=== PATIENT | female | born 1965 | race African-American/Black ===

== ENCOUNTER 2017-01-27 17:35 | Inpatient (IN) ==
[2017-01-27 18:12] LABS: Eosinophils # 0.1 10*3/uL (0.0-0.87); Eosinophils % 0.9 % (0.00-10.9); Immature Granulocytes % 0.9 %; Immature Granulocytes Absolute 0.06 #; Lymphocytes # 0.9 10*3/uL (1.4-4.0); Lymphocytes % 13.9 % (21.3-54.2); Mean Corpuscular Hemoglobin 16 PG (27-34); Mean Corpuscular Volume 64.2 FL (87-102); Monocytes # 0.3 10*3/uL (0.11-0.8); Monocytes % 5.1 % (1.7-12.7); NRBC # 0.03 10*3/uL; Neutrophils # 5.1 10*3/uL (1.4-7.4); Neutrophils % 79.2 % (38.7-73.9); Platelet Count 396 T/CUMM (130-400); Red Blood Count 1.87 MC/CUMM (3.8-5.5); Red Cell Distribution Width 22.3 % (9.3-17.3); White Blood Count 6.5 T/CUMM (4-12)
[2017-01-27 18:38] LABS: Alanine Aminotransferase 79 U/L (13-56); Albumin 3.3 G/DL (3.4-5.0); Alkaline Phosphatase 257 U/L (45-117); Aspartate Amino Transferase 43 U/L (0-37); Blood Urea Nitrogen 7 MG/DL (7-18); Calcium 8.8 MG/DL (8.5-10.1); Glucose 126 MG/DL (74-106); Magnesium 2.3 MG/DL (1.8-2.4); Osmolality,Calculated 276.5 MOS/KG (273-304); Potassium 4.3 MMOL/L (3.5-5.1); Sodium 139 MMOL/L (136-145); Total Protein 8.3 G/DL (6.4-8.3); Troponin I Only < 0.015 NG/ML (0.00-0.045)
[2017-01-27 18:38] LABS: Apearance,Urine CLEAR (Clear); Bilirubin,Urine Negative (Negative); Blood, Urine Negative (Negative); Glucose,Urine (UA) Negative (Negative); Ketones,Urine Negative (Negative); Mucus,Urine Occasional /LPF (Occasional); Nitrite,Urine Negative (Negative); Protein,Urine 100 MG/DL; RBC,Urine 1 /HPF (0-4); Urine Color Yellow (Yellow); WBC,Urine 8 /HPF (0-6)
[2017-01-27] MEDS ORDERED: SODIUM CHLORIDE 0.9% 250 ML IV PRN (18:38)
--- NOTE | 2017-01-27 18:49 | XRay Report ---
Portable chest January 27, 2017 Indication: Shortness of breath, weakness Comparison: Not available Findings: Heart size is enlarged. Lungs are clear bilaterally. No acute osseous abnormalities. Visualized upper abdomen demonstrates no acute pathology. Impression: Cardiomegaly. No acute cardiopulmonary findings PROCEDURE INTERPRETED AT [facility] DEPARTMENT OF RADIOLOGY Final Report Signed by: Sesar Douglas
[2017-01-27 19:23] LABS: Microcytosis 3+
[2017-01-27 19:24] LABS: Hypochromasia 2+; Rouleau 2+
[2017-01-27 19:25] LABS: Ovalocytes Few; Tear Drop Cells Few
[2017-01-27 19:26] LABS: Platelet Estimate Normal
[2017-01-27 19:37] LABS: % Iron Saturation 3.1 % (18-50)
[2017-01-27 19:40] LABS: INR 1.3; PT Patient Result 14.3 SECS
[2017-01-27 19:43] LABS: Partial Thromboplastin Time < 21.0 SECS (0-40)
--- NOTE | 2017-01-27 20:02 | CT Report ---
Exam: CT abdomen and pelvis with intravenous contrast Exam date: January 27, 2017 Clinical History: 4-year-old male with abdominal pain radiating to right lower quadrant Technique: Axial computed tomography images of the abdomen and pelvis with intravenous contrast. All CT scans at this facility use one or more dose reduction techniques. Automated exposure control, MA/KV adjustment per patient size (including targeted exam Square dose is matched to indication) or iterative reconstruction technique Contrast: 25 mL of Omnipaque 350 administered intravenously Comparison: No relevant prior studies Findings: Lower thorax: Four-chamber cardiomegaly Abdomen: Liver: Enlarged and diffusely heterogeneous in enhancement and attenuation Gallbladder and bile ducts: Gallbladder is contracted. No calcified stones. No ductal dilatation. Pancreas: Pancreas is normal. Spleen: Spleen is normal. Adrenals: No adrenal mass. Kidneys and ureters: Kidneys are normal in size, morphology and enhancement. No hydronephrosis. No ureteral calculus. Stomach and bowel: No evidence of acute gastritis, colitis or enteritis. No bowel obstruction. Appendix: Unremarkable. No primary or secondary signs to suggest appendicitis. Pelvis: Bladder: Unremarkable Reproductive: Uterus is markedly enlarged measuring 14.0 x 20.0 x 15.0 cm with nodularity, diffuse heterogeneity and dystrophic calcifications. The uterus extends into the mid abdomen displacing bowel and adjacent structures. Abdomen and pelvis: Intraperitoneal space: No pneumoperitoneum. Four-quadrant ascites Bones/joints: No acute osseous abnormality Soft tissues: Stranding throughout the subcutaneous soft tissues Vasculature: No aortic aneurysm Lymph nodes: No adenopathy Impression: 1. Markedly enlarged fibroid uterus measuring up to 20.0 cm in long dimension displacing lower abdominal and intrapelvic structures. 2. Ascites and anasarca 3. Hepatomegaly with diffuse heterogeneity in attenuation and enhancement, likely related to steatosis 4. Other findings as discussed above PROCEDURE INTERPRETED AT [facility] DEPARTMENT OF RADIOLOGY Final Report Signed by: Sesar Douglas
--- NOTE | 2017-01-27 20:32 | Emergency Department Note ---
Evan Corcoran Brooke, am scribing for, and in the presence of, Kate Lockhart MD 17: 57. Richy Corcoran Leanne, MD, personally performed the services described in this documentation, ascribed by Mary Gordon in my presence, and it is both accurate and complete . Arrival - Arrival Chief Complaint: Shortness of Breath Stated Complaint: sob ED Nursing Triage Note: PT BROUGHT FROM HOME PER EMS FOR C/O SHORTNESS OF BREATH X2 WEEKS, WORSE WITH EXERTION. PT ALSO REPORTS INCREASED SWELLING TO ABD AND FEET OVER THE PAST 3 WEEKS. PT DENIES ANY HEALTH HISTORY OR PCP. Mode of Arrival: Stretcher Limitations: No Limitations Source: Patient, EMS, RN Notes Reviewed Time Seen by Provider: 01/27/17 17:48 - History of Present Illness HPI Narrative: Patient is a 51 year old female who was brought into the ED by EMS with c/o shortness of breath and fluid build up. Patient says she "does not go to the doctor" so she does not have any diagnoses. Patient says her abdomen and bilateral lower extremities started swelling about two weeks ago. With the swelling she became short of breath. She has had a 30 pound weight gain "within the past year." Patient says she has not seen a doctor in over three years. She says she does not have a FHx of CHF or liver disease. Patient does not drink alcohol. She denies having any pain. Patient says she has had gestational HTN but denies any other medical problems. Patient also denies . She does not take any medications. Onset (ago): week(s) (2) Allergies/Adverse Reactions: Allergies Allergy/AdvReac Type Severity Reaction Status Date / Time No Known Allergies Allergy Verified 01/27/17 17:47 Review of System - Review of System 12 point system: reviewed and no additional remarkable complaints except as stated - Review of System Constitutional: Present: weight gain (30 pound "within the past year"). Absent : fever Respiratory: Absent: respiratory distress Cardiovascular: Present: edema (bilateral lower extremity) Gastrointestinal: Present: other (abdominal swelling) Skin: Absent: rash Medical,Surgical,& Family Hx - Surgical History Orthopedic Surgeries: Surgical HX of;: Orthopedic Surgery (LEFT FUMUR MERCED) - Social History Smoking Status: Never smoker Frequency of Alcohol Use: None Type of Drug Use: None Exam Vital Signs: Vital Signs Temperature 98.1 F 01/27/17 19:11 Pulse Rate 90 01/27/17 19:11 Respiratory Rate 16 01/27/17 19:11 Blood Pressure 149/78 01/27/17 19:11 O2 Sat by Pulse Oximetry 100 01/27/17 18:45 - General General appearance: alert, in no apparent distress - Head Head exam: Present: atraumatic, normocephalic, normal inspection - Eye Eye exam: Present: normal appearance, PERRL, EOMI - ENT ENT exam: Present: normal exam, mucous membranes moist - Neck Neck exam: Present: normal inspection - Chest Chest inspection: Present: normal inspection, symmetric chest wall rise - Respiratory Respiratory exam: Present: normal lung sounds bilaterally - Cardiovascular Cardiovascular exam: Present: regular rate, normal rhythm, normal heart sounds - Abdominal Exam Abdominal exam: Present: distention (fluid overload), normal bowel sounds. Absent: soft, tenderness - Extremities Exam Extremities exam: Present: pedal edema (bilateral lower extremities- fluid overload) - Back Exam Back exam: Present: normal inspection - Neurological Exam Neurological exam: Present: alert, oriented X3 - Psychiatric Psychiatric exam: Present: normal affect, normal mood - Skin Skin exam: Present: warm, dry, intact, normal color Course Course Narrative: Pt presents with SOB. Found to be severely anemic. Pt states she has very heavy periods. FOBT negative. CT scan shows ascites and hepatomegaly and enlarged uterus. Ordered 4 units of blood. will admit to hospitalist. Results - Labs CBC & BMP: 01/27/17 18:26 01/27/17 17:53 Lab Results: I have reviewed the patients labs Labs: Laboratory Tests 01/27/17 18:26 WBC 6.5 RBC 1.87 L Hgb 3.0 L* Hct 12.0 L* MCV 64.2 L MCH 16 L MCHC 25.0 L RDW 22.3 H Plt Count 396 MPV 10.0 Neut % (Auto) 79.2 H Lymph % (Auto) 13.9 L [place] % (Auto) 5.1 Eos % (Auto) 0.9 Baso % (Auto) 0.0 Neut # (Auto) 5.1 Lymph # (Auto) 0.9 L [place] # (Auto) 0.3 Eos # (Auto) 0.1 Baso # (Auto) 0.0 Immature Gran % 0.9 Nucleated RBC % 0.5 Immature Gran # 0.06 Nucleated RBCs # 0.03 Immature Plt Fraction 2.7 Laboratory Tests 01/27/17 01/27/17 17:53 18:28 Sodium 139 Potassium 4.3 Chloride 107 Carbon Dioxide 19 L Anion Gap 17.3 H BUN 7 Creatinine 1.00 GFR Calculation 97 BUN/Creatinine Ratio 7.00 Glucose 126 H Calculated Osmolality 276.5 Calcium 8.8 Magnesium 2.3 Total Bilirubin 1.10 H AST 43 H ALT 79 H Alkaline Phosphatase 257 H Troponin I < 0.015 Total Protein 8.3 Albumin 3.3 L Globulin 5.0 H Albumin/Globulin Ratio 0.6 L Urine Color Yellow Urine Appearance Clear Urine pH 7.0 Ur Specific [place] 1.010 Urine Protein 100 Urine Glucose (UA) Negative Urine Ketones Negative Urine Blood Negative Urine Nitrate Negative Urine Bilirubin Negative Urine Urobilinogen 2.0 H Urine Leukocytes Negative Urine RBC 1 Urine WBC 8 Urine Mucus Occasional Ur Culture Indicated? Results to follow Laboratory Tests 01/27/17 01/27/17 01/27/17 17:53 17:58 17:58 B-Natriuretic Peptide 306 H Blood Type A POSITIVE Antibody Screen Negative Crossmatch See Detail Laboratory Tests 01/27/17 01/27/17 01/27/17 17:53 17:53 18:26 Platelet Estimate Normal Hypochromasia 2+ Microcytosis 3+ Tear Drop Cells Few Ovalocytes Few Rouleaux 2+ INR 1.3 PT Patient/Control Mix 14.3 Circ Anticoag PTT < 21.0 Iron 15 L TIBC 477 H % Saturation 3.1 L Ferritin 3.0 L - EKG EKG results: interpreted by ERMEric, sinus rhythm, normal axis, normal QRS, normal ST/T - Diagnostic Findings Procedure: Chest x-ray: report reviewed by me (No acute cardiopulmonary findings.), CT Abdomen and Pelvis: report reviewed by me (1. Markedly enlarged fibroid uterus measuring up to 20.0cm in long dimension displacing lower abdominal and intrapelvic structures. 2. Ascites and anasarca. 3. Hepatomegaly with diffuse heterogeneity in attenuation and enhancement, likely related to steatosis.) Disposition Clinical Impression: Symptomatic anemia, Ascites, Cardiomegaly Case discussed with: patient Condition: Guarded Additional Instructions: Admit to hospitalist.
[2017-01-27] MEDS ORDERED: ENOXAPARIN 40 MG/0.4 ML SYRINGE SUBCUT SCH (21:30)
--- NOTE | 2017-01-27 21:40 | Hospitalist History & Physical ---
Assessment and Plan - Time spent with patient Time spent with patient: Greater than 30 minutes (1) Anemia Status: Acute Assessment and plan: Admit to hospitalist services. Admit to ICU. Hemoglobin/Hematocrit: 3.0/12.0, Iron 15, TIBC 477, Ferritin 3.0. 4 units PRBC ordered and started in ED; continue. Suspect anemia related to heavy and prolonged menstrual periods. Consult Women's Health. Recheck CBC in am. Current Visit: Yes (2) CHF (congestive heart failure) Status: Acute Assessment and plan: BNP 306. CXR shows cardiomegaly. May at least be partially related to severe anemia, continue PRBC transfusions. Consult cardiology. Obtain EKG and Echo. Lipid panel, A1C, TSH, Free T4, Total T4, and Mag in am. Patient denies history of HTN and takes no medications, but BP in ED suggests HTN is probable; continue to monitor and initiate treatment if SBP remains elevated above 150. Cardiac Diet. Daily weight. Strict I/Os. Current Visit: Yes (3) Ascites Status: Acute Assessment and plan: Likely component of CHF. Also has elevated liver enzymes. Obtain abdominal ultrasound. Current Visit: Yes (4) DVT prophylaxis Status: Acute Assessment and plan: Bilateral SCDs. Current Visit: Yes History of Present Illness Chief complaint: SOB, Ascites, BLE edema History of present illness: Ms. Luong is a 51 year old female with no reported medical history who was brought to the ED by EMS tonight for complaints of shortness of breath, BLE edema, and abdominal fullness/bloating that started about 2 weeks [facility] but has worsened over the last week. She reports having to sleep on 3 pillows at night to feel comfortable. In the ED, she was found to have a hemoglobin and hematocrit of 3.0 and 12.0 respectively. She reports having heavy and prolonged monthly menstrual periods over the last year, with some lasting for an entire month. Ms. Luong reports that her mother had a hysterectomy to correct similar bleeding. She denies any other source of bleeding. Additionally, CXR in the ED showed cardiomegaly, BNP was 306 and liver enzymes were elevated. She denies any chest pain or N/V/D. Ms. Luong reports that it has been a long time since she has seen a doctor. She states she is afraid to going to the doctor and getting bad news. It's been a number of years since her last gynecology visit, and she denies taking any home medications. Hospitalist services were consulted , and the patient will be admitted to ICU for further evaluation and treatment. Allergies Allergy/AdvReac Type Severity Reaction Status Date / Time No Known Allergies Allergy Verified 01/27/17 17:47 Medical,Surgical,& Family Hx - Medical History Other: History of: Miscellaneous Medical Problems (PMH was reviewed with the patient. She denies any PMH or medications. ) - Surgical History Orthopedic Surgeries: Surgical HX of;: Orthopedic Surgery (LEFT FEMUR MERCED) - Family History Family History: Reports;: Additional Family History (Mother had hysterectomy 2/ 2 menorrhagia ) - Social History Smoking Status: Never smoker Have you smoked in the last 12 months: No Frequency of Alcohol Use: None Type of Drug Use: None Marital Status: Single Lives With:: Alone Functional capacity: independent ambulation 12 point system: reviewed and no additional remarkable complaints except as stated - Constitutional Constitutional: Absent: chills, fever(s), lethargy, malaise, weakness - EENT Eyes: Absent: blurry vision, diplopia, loss of vision Ears: Absent: decreased hearing, ear discharge, ear pain Nose, mouth and throat: Present: nasal congestion. Absent: headache(s), sore throat - Cardiovascular Cardiovascular: Present: dyspnea, dyspnea on exertion, edema, orthopnea. Absent : chest pain at rest, chest pain with activity, palpitations - Respiratory Respiratory: Present: cough, dyspnea, dyspnea on exertion, wheezing - Gastrointestinal Gastrointestinal: Present: bloating. Absent: abdominal pain, coffee ground emesis, constipation, diarrhea, hematemesis, hematochezia, melena, nausea, vomiting - Genitourinary Genitourinary: Present: menorrhagia. Absent: dysuria, hematuria, urinary frequency - Musculoskeletal Musculoskeletal: Absent: arthralgias, back pain, joint swelling, muscle weakness , myalgias - Neurological Neurological: Absent: dizziness, numbness, paresthesias, syncope - Psychiatric Psychiatric: Absent: anxiety, depression - Endocrine Endocrine: Absent: cold intolerance, heat intolerance, polydipsia, polyphagia, polyuria - Hematologic/Lymphatic Hematologic/Lymphatic: Absent: easy bleeding, easy bruising Exam - Constitutional Vitals: Period Temp Pulse Resp BP Sys/[place] Pulse Ox Last 24 Hr 98.1 F-98.4 F 87-95 16-20 139-170/69-97 100-100 Exam: Constitutional System: Afebrile. Awake, alert and oriented x 3. No distress. No tremulousness. Head: Normocephalic, atraumatic. Ears, Nose and Throat System: No pain or tenderness. No epistaxis or discharge Eyes System: Pupils equal, round, and reactive. Extraocular muscles intact grossly. Neck: Supple, without adenopathy. No thyromegaly, neck mass, or prior surgery apparent. Respiratory System: Bilateral wheezing noted. Cardiovascular System: Heart with regular rate. S4 gallop noted. Systolic murmur noted. GI System: Abdomen distended, nontender; without rebound or guarding. Normo active bowel sounds present. Musculoskeletal System: BLEs with 4+ pitting edema. Normal capillary refill. Skin: warm, dry and intact. Neurological System: No discernable sensory deficit. No aphasia Psychiatric System: Conversation is rational Results - Labs CBC & BMP: 01/27/17 18:26 01/27/17 17:53 Lab Results: I have reviewed the past 24 hour labs
[2017-01-28 05:42] LABS: Basophils % 0.5 % (0.0-0.8); Eosinophils % 0.6 % (0.00-10.9); Immature Granulocytes % 1.5 %; Lymphocytes % 14.7 % (21.3-54.2); Mean Corpuscular HGB Conc 29.5 GM/DL (32-36); Mean Corpuscular Hemoglobin 21 PG (27-34); Mean Corpuscular Volume 71.2 FL (87-102); Mean Platelet Volume 9.4 FL (9.6-12.0); Monocytes # 0.4 10*3/uL (0.11-0.8); Monocytes % 5.9 % (1.7-12.7); NRBC # 0.05 10*3/uL; Neutrophils % 76.8 % (38.7-73.9); Platelet Count 356 T/CUMM (130-400); Red Blood Count 2.43 MC/CUMM (3.8-5.5); Red Cell Distribution Width 24.3 % (9.3-17.3); White Blood Count 6.5 T/CUMM (4-12)
[2017-01-28 05:46] LABS: Hemoglobin 5.1 GM/DL (12.0-16.0)
[2017-01-28 05:47] LABS: Hematocrit 17.3 VOL% (35.7-47.0)
[2017-01-28 06:09] LABS: Hypochromasia 2+; Microcytosis 2+
[2017-01-28 06:10] LABS: Free T4 (Free Thyroxine) 1.58 NG/DL (0.76-1.46); Ovalocytes Few; Platelet Estimate Normal; T4 (Thyroxine) 10.1 UG/DL (4.7-13.3); Tear Drop Cells Few
[2017-01-28 06:19] LABS: Magnesium 2.3 MG/DL (1.8-2.4); Risk Ratio 4.5; Thyroid Stimulating Hormone 3.16 uIU/ml (0.358-3.74); VLDL CHOLESTEROL 13.2 MG/DL
[2017-01-28] MEDS ORDERED: DOCUSATE SODIUM 100 MG CAPSULE PO PRN (08:03)
[2017-01-28] MEDS ORDERED: ZALEPLON 5 MG CAPSULE PO PRN (08:03)
[2017-01-28] MEDS ORDERED: MAGNESIUM SULF RIDER 2 GM in PREMIX 1 EACH IV PRN (08:03)
[2017-01-28] MEDS ORDERED: ALBUTEROL/IPRATROPIUM 3 ML NEB RESP TX PRN (08:03)
[2017-01-28] MEDS ORDERED: MAGNESIUM SULF RIDER 4 GM in PREMIX 1 EACH IV PRN (08:03)
[2017-01-28] MEDS ORDERED: POTASSIUM CHLORIDE 20 MEQ TABLET PO PRN (08:03)
[2017-01-28] MEDS ORDERED: ONDANSETRON 4 MG/2 ML VIAL IV PRN (08:03)
[2017-01-28] MEDS ORDERED: diphenhydrAMINE CAP 25 MG CAPSULE PO PRN (08:03)
[2017-01-28] MEDS ORDERED: ACETAMINOPHEN 325 MG TABLET PO PRN (08:03)
--- NOTE | 2017-01-28 08:06 | Cardiology Consult Note ---
Assessment and Plan - Time spent with patient Time spent with patient: Less than 30 minutes (1) Anemia Status: Acute Assessment and plan: See plan of care listed below. Current Visit: Yes (2) Dyspnea Status: Acute Assessment and plan: See plan of care listed below. Current Visit: Yes Qualifiers: Dyspnea type: shortness of breath Qualified Code(s): R06.02 - Shortness of breath; R06.00 - Dyspnea, unspecified; R06.01 - Orthopnea (3) Ascites Status: Acute Assessment and plan: See plan of care listed below. Current Visit: Yes (4) Hypertension Status: Acute Assessment and plan: See plan of care listed below. Current Visit: Yes (5) Elevated LFTs Status: Acute Assessment and plan: See plan of care listed below. 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 Luong is a 51 year old female with no reported medical history. She is a lifetime non-smoker, non-drinker. Risk factors are significant for: obesity, sedentary lifestyle, hypertension, diabetes. She has no significant family history of CAD. She was brought to our emergency department via EMS for complaints of shortness of breath, BLE edema, and abdominal fullness/bloating that has been progressively worsening over the past 2 weeks. She reports she first noticed she 'd been retaining fluid about a month ago, mainly in her abdomen and bilateral lower extremity. She reports dyspnea on exertion during the past 2 weeks along with 3 pillow orthopnea. Her H&H on arrival was 3.0 and 12.0. She reports having heavy menstrual cycles over the past year, some of her periods lasting for a month at a time. She does report her mother having to have a hysterectomy to correct similar bleeding. She denies chest pain at rest or on exertion, melena, hematochezia, hematemesis, epistaxis. She has noticed occasional palpitations. Ms. Luong had a BNP of 306 on admission with gross edema to BLE. She is noted to have ascites. Chest x-ray on admission shows cardiomegaly with clear lungs bilaterally. Abdomen/pelvis CT revealed enlarged fibroid uterus, hepatomegaly, ascites, and anasarca. Abdominal ultrasound revealed hepatomegaly with diffuse steatosis and trace ascites. We'll check a hepatitis panel. Lipid panel revealed triglycerides 66, cholesterol 81, LDL 57, and HDL 18. EKG shows sinus rhythm with ST-T abnormality. ASSESSMENT/PLAN: 1. 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 She is currently receiving her 4th unit of PRBCs. Stool for occult blood is pending. 2. DYSPNEA - BNP 306 upon admission with BLE edema and ascites, suggestive of CHF. Echocardiogram is pending. We will also check d-dimer to rule out PE. She has been started on Lasix 40mg IV BID. She is receiving her 4th unit of blood. She is also noted to have scattered expiratory wheezing. We'll go ahead and start her on breathing treatments PRN. 3. ASCITES - Continue Lasix 40mg IV BID for now. 4. HYPERTENSION - Blood pressure has been elevated since admission. She is also noted to have a HgbA1C of 7.4. We'll start her on a low-dose ARUNA inhibitor and continue to monitor and adjust accordingly. 5. ELEVATED LFTs - Abdomen/pelvis CT revealed enlarged fibroid uterus, hepatomegaly, ascites, and anasarca. Abdominal ultrasound revealed hepatomegaly with diffuse steatosis and trace ascites. We'll check a hepatitis panel. LFTs have been elevated since admission. CC: Keke Sainz MD - Home Medications and Allergies Allergies/Adverse Reactions: Allergies Allergy/AdvReac Type Severity Reaction Status Date / Time No Known Allergies Allergy Verified 01/27/17 17:47 Review of systems: - Constitutional: Present: fatigue, As per HPI. Absent: anorexia, chills, daytime sleepiness, excessive sweating, fever(s), frequent falls, headache(s), increased appetite, lethargy, malaise, night sweats, stops breathing during sleep, weakness, weight gain, weight loss. - EENT Eyes: Present: As per HPI. Absent: blurry vision, diplopia, loss of vision Ears: Present: As per HPI. Absent: decreased hearing, ear discharge, ear pain Nose, mouth and throat: Present: nasal congestion, As per HPI. Absent: dysphagia , epistaxis, headache(s), hoarseness, lip swelling, neck mass, neck pain, sinus pressure, sore throat, throat swelling, tongue swelling, vertigo - Cardiovascular: Present: dyspnea, dyspnea on exertion, edema, orthopnea, palpitations, as per HPI. Absent: chest pain at rest, chest pain with activity , claudication, diaphoresis, radiating jaw, neck or arm pain, lightheadedness, PND - Respiratory: Present: dyspnea, dyspnea on exertion, wheezing, as per HPI. Absent: cough, hemoptysis, snoring, pain on inspiration - Gastrointestinal: Present: As per HPI. Absent: abdominal pain, bloating, change in bowel habits, constipation, diarrhea, heartburn, hematemesis, hematochezia, loose stools, melena, nausea, vomiting - Genitourinary: Present: As per HPI. Absent: difficulty urinating, dysuria, flank pain, hematuria, nocturia, urinary frequency, urinary incontinence - Musculoskeletal: Present: As per HPI. Absent: arthralgias, back pain, joint swelling, limited range of motion, muscle cramps, muscle weakness, myalgias - Neurological: Present: As per HPI. Absent: abnormal gait, abnormal speech, behavioral changes, confusion, convulsions, disequilibrium, dizziness, focal weakness, frequent falls, headache(s), memory loss, numbness, paresthesias, radicular pain, syncope, tremor(s) - Psychiatric: Present: As per HPI. Absent: anxiety, confusion, depression, panic attacks - Endocrine: Present: fatigue, As per HPI. Absent: cold intolerance, heat intolerance, polydipsia, polyphagia - Hematologic/Lymphatic: Present: As per HPI. Absent: easy bleeding, easy bruising, lymphadenopathy Medical,Surgical,& Family Hx - Medical History Other: History of: Miscellaneous Medical Problems (PMH was reviewed with the patient. She denies any PMH or medications. ) - Surgical History Orthopedic Surgeries: Surgical HX of;: Orthopedic Surgery (LEFT FEMUR MERCED) - Family History Family History: Reports;: Additional Family History (Mother had hysterectomy 2/ 2 menorrhagia ) - Social History Smoking Status: Never smoker Frequency of Alcohol Use: None Type of Drug Use: None Marital Status: Single Functional capacity: independent ambulation Physical Examination Vital Signs Temp Pulse Resp BP Pulse Ox 98.2 F 95 H 20 163/73 100 01/27/17 17:35 01/27/17 17:35 01/27/17 17:35 01/27/17 17:35 01/27/17 17:35 Exam: General appearance: Appears well. Pleasant and cooperative. Overweight, no acute distress. Head exam: Present: normal inspection, normocephalic, atraumatic. Absent: hematoma, laceration Eye exam: Present: EOMI. Absent: conjunctival injection, nystagmus, periorbital swelling, scleral icterus, laceration to eyelids, jaundice Pupils: Present: PERRL. Absent: constricted, dilated, fixed, irregular, unequal ENT exam: Present: normal exam, normal external ear exam, mucous membranes moist. Neck exam: Present: normal inspection, midline trachea. Absent: masses, lymphadenopathy, tenderness, thyromegaly, carotid bruit Respiratory exam: Present: Scattered expiratory wheezes anteriorly and posteriorly, otherwise clear to auscultation bilaterally. Absent: accessory muscle use, chest wall tenderness, rales, rhonchi Cardiovascular exam: Present: regular rate and rhythm. Unable to assess for JVD due to habitus. Absent: gallop, rubs GI/Abdominal exam: Present: normal bowel sounds, slightly firm and distended with ascites present. Unable to palpate for hepatomegaly or splenomegaly due to habitus. Absent: hernia, mass, tenderness. Extremities exam: Present: Normal Gait, No Clubbing, No Cyanosis, Upper Extr. Pulses 2+, Lower Extr. Pulses 2+, 3-4+ BLE edema. Capillary refill less than 3 seconds. Musculoskeletal: Present: No Fluid Collection, No Pain, Normal Range of Motion Back exam: Present: normal inspection. Absent: muscle spasm, vertebral tenderness Neurological exam: Present: awake, alert, oriented X3, Moves all extremities well without hemiparesis or paralysis. Grossly intact without resting or essential tremor Psychiatric exam: Present: normal affect, normal mood Skin exam: Present: normal color, warm, dry, intact. Absent: cyanosis, diaphoretic, rash, urticaria Result/EKG - Labs CBC & BMP: 01/28/17 05:32 01/27/17 17:53 Lab Results: I have reviewed the past 24 hour labs Labs: Laboratory Results - last 24 hr 01/27/17 01/27/17 01/27/17 17:53 17:53 17:53 WBC RBC Hgb Hct MCV MCH MCHC RDW Plt Count MPV Neut % (Auto) Lymph % (Auto) Dickens % (Auto) Eos % (Auto) Baso % (Auto) Neut # (Auto) Lymph # (Auto) Dickens # (Auto) Eos # (Auto) Baso # (Auto) Immature Gran % Nucleated RBC % Immature Gran # Nucleated RBCs # Platelet Estimate Immature Plt Fraction Hypochromasia Microcytosis Tear Drop Cells Ovalocytes Rouleaux INR 1.3 PT Patient/Control Mix 14.3 Circ Anticoag PTT < 21.0 Sodium 139 Potassium 4.3 Chloride 107 Carbon Dioxide 19 L Anion Gap 17.3 H BUN 7 Creatinine 1.00 GFR Calculation 97 BUN/Creatinine Ratio 7.00 Glucose 126 H Hemoglobin A1c Calculated Osmolality 276.5 Calcium 8.8 Magnesium 2.3 Iron TIBC % Saturation Ferritin Total Bilirubin 1.10 H AST 43 H ALT 79 H Alkaline Phosphatase 257 H Troponin I < 0.015 B-Natriuretic Peptide 306 H Total Protein 8.3 Albumin 3.3 L Globulin 5.0 H Albumin/Globulin Ratio 0.6 L Triglycerides Cholesterol LDL Cholesterol VLDL Cholesterol HDL Cholesterol Heart Disease Risk Ratio Free T4 Thyroxine (T4) TSH 3rd Generation Urine Color Urine Appearance Urine pH Ur Specific Newman Urine Protein Urine Glucose (UA) Urine Ketones Urine Blood Urine Nitrate Urine Bilirubin Urine Urobilinogen Urine Leukocytes Urine RBC Urine WBC Urine Mucus Ur Culture Indicated? Blood Type Antibody Screen Crossmatch 01/27/17 01/27/17 01/27/17 17:53 17:58 17:58 WBC RBC Hgb Hct MCV MCH MCHC RDW Plt Count MPV Neut % (Auto) Lymph % (Auto) Dickens % (Auto) Eos % (Auto) Baso % (Auto) Neut # (Auto) Lymph # (Auto) Dickens # (Auto) Eos # (Auto) Baso # (Auto) Immature Gran % Nucleated RBC % Immature Gran # Nucleated RBCs # Platelet Estimate Immature Plt Fraction Hypochromasia Microcytosis Tear Drop Cells Ovalocytes Rouleaux INR PT Patient/Control Mix Circ Anticoag PTT Sodium Potassium Chloride Carbon Dioxide Anion Gap BUN Creatinine GFR Calculation BUN/Creatinine Ratio Glucose Hemoglobin A1c Calculated Osmolality Calcium Magnesium Iron 15 L TIBC 477 H % Saturation 3.1 L Ferritin 3.0 L Total Bilirubin AST ALT Alkaline Phosphatase Troponin I B-Natriuretic Peptide Total Protein Albumin Globulin Albumin/Globulin Ratio Triglycerides Cholesterol LDL Cholesterol VLDL Cholesterol HDL Cholesterol Heart Disease Risk Ratio Free T4 Thyroxine (T4) TSH 3rd Generation Urine Color Urine Appearance Urine pH Ur Specific Newman Urine Protein Urine Glucose (UA) Urine Ketones Urine Blood Urine Nitrate Urine Bilirubin Urine Urobilinogen Urine Leukocytes Urine RBC Urine WBC Urine Mucus Ur Culture Indicated? Blood Type A POSITIVE A POSITIVE Antibody Screen Negative Crossmatch See Detail 01/27/17 01/27/17 01/28/17 18:26 18:28 05:32 WBC 6.5 6.5 RBC 1.87 L 2.43 L D Hgb 3.0 L* 5.1 L* D Hct 12.0 L* 17.3 L* D MCV 64.2 L 71.2 L MCH 16 L 21 L MCHC 25.0 L 29.5 L RDW 22.3 H 24.3 H Plt Count 396 356 MPV 10.0 9.4 L Neut % (Auto) 79.2 H 76.8 H Lymph % (Auto) 13.9 L 14.7 L Dickens % (Auto) 5.1 5.9 Eos % (Auto) 0.9 0.6 Baso % (Auto) 0.0 0.5 Neut # (Auto) 5.1 5.0 Lymph # (Auto) 0.9 L 1.0 L Dickens # (Auto) 0.3 0.4 Eos # (Auto) 0.1 0.0 Baso # (Auto) 0.0 0.0 Immature Gran % 0.9 1.5 Nucleated RBC % 0.5 0.8 Immature Gran # 0.06 0.10 Nucleated RBCs # 0.03 0.05 Platelet Estimate Normal Normal Immature Plt Fraction 2.7 0.0 Hypochromasia 2+ 2+ Microcytosis 3+ 2+ Tear Drop Cells Few Few Ovalocytes Few Few Rouleaux 2+ INR PT Patient/Control Mix Circ Anticoag PTT Sodium Potassium Chloride Carbon Dioxide Anion Gap BUN Creatinine GFR Calculation BUN/Creatinine Ratio Glucose Hemoglobin A1c Calculated Osmolality Calcium Magnesium Iron TIBC % Saturation Ferritin Total Bilirubin AST ALT Alkaline Phosphatase Troponin I B-Natriuretic Peptide Total Protein Albumin Globulin Albumin/Globulin Ratio Triglycerides Cholesterol LDL Cholesterol VLDL Cholesterol HDL Cholesterol Heart Disease Risk Ratio Free T4 Thyroxine (T4) TSH 3rd Generation Urine Color Yellow Urine Appearance Clear Urine pH 7.0 Ur Specific Newman 1.010 Urine Protein 100 Urine Glucose (UA) Negative Urine Ketones Negative Urine Blood Negative Urine Nitrate Negative Urine Bilirubin Negative Urine Urobilinogen 2.0 H Urine Leukocytes Negative Urine RBC 1 Urine WBC 8 Urine Mucus Occasional Ur Culture Indicated? Results to follow Blood Type Antibody Screen Crossmatch 0901/28/17 01/28/17 05:32 05:32 05:32 WBC RBC Hgb Hct MCV MCH MCHC RDW Plt Count MPV Neut % (Auto) Lymph % (Auto) Dickens % (Auto) Eos % (Auto) Baso % (Auto) Neut # (Auto) Lymph # (Auto) Dickens # (Auto) Eos # (Auto) Baso # (Auto) Immature Gran % Nucleated RBC % Immature Gran # Nucleated RBCs # Platelet Estimate Immature Plt Fraction Hypochromasia Microcytosis Tear Drop Cells Ovalocytes Rouleaux INR PT Patient/Control Mix Circ Anticoag PTT Sodium Potassium Chloride Carbon Dioxide Anion Gap BUN Creatinine GFR Calculation BUN/Creatinine Ratio Glucose Hemoglobin A1c 7.4 H Calculated Osmolality Calcium Magnesium 2.3 Iron TIBC % Saturation Ferritin Total Bilirubin AST ALT Alkaline Phosphatase Troponin I B-Natriuretic Peptide Total Protein Albumin Globulin Albumin/Globulin Ratio Triglycerides 66 Cholesterol 81 LDL Cholesterol 57.0 VLDL Cholesterol 13.2 HDL Cholesterol 18 L Heart Disease Risk Ratio 4.50 Free T4 1.58 H Thyroxine (T4) 10.1 TSH 3rd Generation 3.160 Urine Color Urine Appearance Urine pH Ur Specific Newman Urine Protein Urine Glucose (UA) Urine Ketones Urine Blood Urine Nitrate Urine Bilirubin Urine Urobilinogen Urine Leukocytes Urine RBC Urine WBC Urine Mucus Ur Culture Indicated? Blood Type Antibody Screen Crossmatch - EKG EKG results: interpreted by me, sinus rhythm
--- NOTE | 2017-01-28 08:22 | Ultrasound Report ---
Exam: Ultrasound abdomen complete: January 27, 2017 at 2200 hours Clinical History: 51 year-old female with abdominal pain and elevated liver enzymes Technique: Real-time ultrasound of the abdomen with image documentation Comparison: No relevant comparisons Findings: Liver: Liver is echogenic measuring up to 20.0 cm. Pulsatile flow is noted within the portal vein Gallbladder: Unremarkable. No stones. No wall thickening.. Common bile duct: Nondilated Pancreas: Unremarkable as visualized Kidneys: Unremarkable. Right kidney measures 10.4 x 4.6 x 5.7 cm. Left kidney measures 10.9 x 5.6 x 4.8 cm. Spleen: Enlarged measuring 7.0 x 15.0 x 8.0 cm with total volume of 600 mL Aorta: Unremarkable Peritoneum: Trace free fluid Impression: 1. Hepatomegaly with diffuse steatosis. 2. Trace ascites PROCEDURE INTERPRETED AT [facility] DEPARTMENT OF RADIOLOGY Final Report Signed by: Sesar Douglas
[2017-01-28] MEDS ORDERED: ENOXAPARIN 40 MG/0.4 ML SYRINGE SUBCUT SCH (08:30)
[2017-01-28] MEDS: LISINOPRIL 5 MG TABLET PO SCH (08:58)
[2017-01-28] MEDS: PANTOPRAZOLE 40 MG TABLET PO SCH (08:59)
[2017-01-28] MEDS: FUROSEMIDE 40 MG/4 ML VIAL IV SCH ×2 (08:59→16:34)
[2017-01-28 09:31] LABS: Hematocrit 20.3 VOL% (35.7-47.0)
--- NOTE | 2017-01-28 09:38 | EKG Report ---
Stationary ECG Study [facility] ER Test Date: 01/27/2017 5:46:46 PM Pat Name: OZIEL ONEIL Department: Room: 127 Gender: F Straw Boss: : 1965 Requested by: Madelin Christianson Order Number: [id number] Reading MD: VIRGINIA GUO Intervals [place] Rate: 90 P: -38 CT: 160 QRS: 98 QRSD: 86 T: -20 QT: 324 QTc: 371 Interpretive Statements SINUS RHYTHM RIGHT AXIS DEVIATION POSSIBLE OLD INFERIOR INFARCT Electronically Signed On 01-28-17 16:09:27 CDT by VIRGINIA GUO [email or web address]
[2017-01-28] MEDS ORDERED: SODIUM CHLORIDE 0.9% 250 ML IV PRN (09:48)
[2017-01-28] MEDS ORDERED: DEXTROSE 50% 25 GM/50 ML SYRINGE IV PRN (09:55)
[2017-01-28] MEDS ORDERED: GLUCAGON 1 MG VIAL IM PRN (09:55)
--- NOTE | 2017-01-28 09:56 | Hospitalist Progress Note ---
Assessment and Plan (1) Leg edema Status: Acute Assessment and plan: BNP is elevated at 306 Cardiomegaly on CXR Cardiology is assisting Echo ordered Continue lasix Current Visit: Yes (2) Diabetes mellitus Status: Acute Assessment and plan: Hemoglobin A1C is 7.4 Not a previous diagnosis (she does not see a doctor) Starting SSI with low dose lispro Will hold on metformin while current work-up is ongoing Current Visit: Yes (3) Anemia Status: Acute Assessment and plan: H/H 3/12 on admission s/p 4 units of PRBC, H/H is 11/13 Will transfuse another 2 units today Patient reports heavy menstruation, enlarged fibroid uterus on CT Ob-nitro man consulted Patient denies any other bleeding sources occult blood pending Current Visit: Yes (4) Dyspnea Status: Acute Assessment and plan: Wheezing on exam, agree with duonebs prn Current Visit: Yes Qualifiers: Dyspnea type: shortness of breath Qualified Code(s): R06.02 - Shortness of breath; R06.00 - Dyspnea, unspecified; R06.01 - Orthopnea (5) Hypertension Status: Acute Assessment and plan: Not a previous diagnosis Cardiology assisting, started on lisinopril Current Visit: Yes Hospitalist: Subjective Interval history: No acute events overnight. Patient reports that she feels a little better today. She reports that her abdomen is not as tight today. Exam - Constitutional Vitals: Period Temp Pulse Resp BP Sys/Arias Pulse Ox Last 24 Hr 97.8 F-98.5 F 74-95 14-28 139-174/69-100 89-100 General appearance: over weight - Head Head exam: Present: normocephalic, atraumatic - Eye Eye exam: Present: EOMI Pupils: Present: DONI - ENT ENT exam: Present: normal exam - Neck Neck exam: Present: normal inspection - Respiratory Respiratory exam: Present: wheezes. Absent: rhonchi - Cardiovascular Cardiovascular exam: Present: regular rate and rhythm - GI/Abdominal GI/Abdominal exam: Present: normal bowel sounds, soft. Absent: distended, tenderness, rebound - Extremities Exam Extremities exam: Present: normal inspection - Back Exam Back exam: Present: normal inspection - Neurological Exam Neurological exam: Present: alert, oriented X3 - Psychiatric Psychiatric exam: Present: normal affect, normal mood - Skin Skin exam: Present: warm, intact Results - Labs CBC & BMP: 01/28/17 09:24 01/27/17 17:53
[2017-01-28 10:18] LABS: Hepatitis A Ab IgM Quant 0.05 Index; Hepatitis A Ab IgM Result Negative (Negative); Hepatitis B Core IgM Quant 0.23 Index; Hepatitis B Core IgM Result Negative (Negative); Hepatitis B Surface Ag Quant 0.49 Index; Hepatitis B Surface Ag Result Negative (Negative); Hepatitis C Virus Ab Quant 0.04 Index; Hepatitis C Virus Ab Result Negative (Negative)
[2017-01-28 10:48] LABS: Total Protein 7.7 G/DL (6.4-8.3)
--- NOTE | 2017-01-28 12:13 | Consultation ---
Assessment and Plan (1) Enlarged uterus Status: Acute Assessment and plan: Following review of the patient's radiology and hematology results I discussed the findings with the patient. I explained to her at length that due to the extreme size of her uterus a hysterectomy would be in her best interest as the bleeding will continue until that is done. I also explained to the patient that she must first be stabilized hemodynamically before surgical intervention will presume. Ideally she will need to be transfused to an H&H of 10 and 30 preoperatively. She will be able to follow up as an outpatient in my office for follow-up. She will need an endometrial biopsy at that time. Current Visit: Yes (2) Menometrorrhagia Status: Acute Current Visit: Yes (3) Symptomatic anemia Status: Acute Current Visit: Yes History of Present Illness - Data of Consult Patient: new to practice Consult date: 01/28/17 - Consult Narrative Reason for consult: Menorrhagia and severe anemia History of present illness: Ms. Luong is a 51 year old female This is a 51-year-old admitted through the ED secondary to severe anemia. Patient was found to have a hemoglobin hematocrit of roughly 3 and 12 at time of admission. Patient admits to heavy prolonged vaginal bleeding with passage of nickel-sized blood clots. She states that she will bleed up to 4 weeks at a time using 3-4 bags of sanitary napkins per week. Patient states that she has not seen a doctor in many years due to her phobia. Patient admitted and transfused 4 units so far with 2 more units pending. CC: Keke Sainz MD - Home Medications and Allergies Allergies/Adverse Reactions: Allergies Allergy/AdvReac Type Severity Reaction Status Date / Time No Known Allergies Allergy Verified 01/27/17 17:47 12 point system: reviewed and no additional remarkable complaints except as stated - Cardiovascular Cardiovascular: Present: chest pain with activity - Respiratory Respiratory: Present: dyspnea, dyspnea on exertion - Genitourinary Genitourinary: Present: abnormal vaginal bleeding, menorrhagia Medical,Surgical,& Family Hx - Medical History Medical History: noncontributory Other: History of: Miscellaneous Medical Problems (PMH was reviewed with the patient. She denies any PMH or medications. ) - Surgical History Reproductive Surgeries: Surgical HX of;: Section (2), Tubal Ligation Orthopedic Surgeries: Surgical HX of;: Orthopedic Surgery (LEFT FEMUR MERCED) - Family History Family History: Reports;: Additional Family History (Mother had hysterectomy 2/ 2 menorrhagia ) - Social History Smoking Status: Never smoker Frequency of Alcohol Use: None Type of Drug Use: None Exam - Constitutional Vitals: Period Temp Pulse Resp BP Sys/Arias Pulse Ox Last 24 Hr 97.3 F-98.5 F 74-95 14-28 136-174/69-100 89-100 General appearance: no acute distress - Head Head exam: Present: normocephalic - Neck Neck exam: Present: normal inspection - Respiratory Respiratory exam: Present: clear to auscultation bilaterally - Cardiovascular Cardiovascular exam: Present: regular rate and rhythm - GI/Abdominal GI/Abdominal exam: Present: normal bowel sounds, soft, other (Morbidly obese abdomen large palpable uterus approximately the level of the umbilicus) - Extremities Exam Extremities exam: Present: normal inspection - Back Exam Back exam: Present: normal inspection - Neurological Exam Neurological exam: Present: alert, oriented X3 - Psychiatric Psychiatric exam: Present: normal affect, normal mood - Skin Skin exam: Present: normal color, warm Results - Labs CBC & BMP: 01/28/17 09:24 01/27/17 17:53
[2017-01-28] MEDS: INSULIN LISPRO 100 UNIT/ML SUBCUT SCH ×3 (12:36→20:17)
--- NOTE | 2017-01-28 14:45 | ECHO Report ---
Suzette Luong Exam Date: 01/28/2017 08:12 Referring Physician: Technologist: Katlyn Schaefer Age: 51 Ht (in): 66 Wt (lb): 250 Gender: F Exam Location: [facility] Echo Indications: SOB, new onset of CHF, anemia, cardiomegaly, DVT BP: 142 / 83 HR: 80 Rhythm: Sinus Technical Quality: IMPRESSIONS Normal left ventricular cavity size and function with a normal left ventricular ejection fraction estimated at 50-55 %. Mildly enlarged right heart. Mild left atrial enlargement. Mild aortic valve sclerosis without stenosis or regurgitation. Mildly thickened mitral valve with mild to moderate mitral regurgitation. Mild to moderate tricuspid valve regurgitation. MEASUREMENTS (Male / Female) Normal Values 2D ECHO LV Diastolic Diameter PLAX 4.5 cm 4.2 - 5.9 / 3.9 - 5.3 cm LV Systolic Diameter PLAX 3.5 cm LV Fractional Shortening PLAX 22.6 % IVS Diastolic Thickness 1.3 cm 0.6 - 1.0 / 0.6 - 0.9 cm LVPW Diastolic Thickness 1.4 cm 0.6 - 1.0 / 0.6 - 0.9 cm Aortic Root Diameter 2.3 cm LA Systolic Diameter LX 4.3 cm 3.0 - 4.0 / 2.7 - 3.8 cm DOPPLER TR Peak Velocity 332.0 cm/s TR Peak Gradient 44.1 mmHg FINDINGS Left Ventricle Normal left ventricular cavity size and function with a normal left ventricular ejection fraction estimated at 50-55 %. . Right Ventricle Mildly increased right ventricular size. Right Atrium The right atrium is mildly enlarged. Left Atrium The left atrium is mildly enlarged. Mitral Valve Mildly thickened mitral valve with mild to moderate mitral regurgitation. Aortic Valve Mild aortic valve sclerosis without stenosis or regurgitation. Tricuspid Valve Morphologically normal tricuspid valve. Mild to moderate tricuspid valve regurgitation. Tricuspid regurgitation velocities suggest a PAP of approximately 50 mmHg. Pulmonic Valve Pulmonic valve not well visualized. Pericardium No pericardial effusion. Aorta Normal size aortic root and proximal ascending aorta. Osmar Lau (Electronically Signed) Final Date: 28 January 2017 14:44
[2017-01-28] MEDS ORDERED: FUROSEMIDE 40 MG/4 ML VIAL IV SCH (16:00)
[2017-01-28 17:41] LABS: Hematocrit 24.3 VOL% (35.7-47.0)
[2017-01-28 17:45] LABS: Hemoglobin 7.5 GM/DL (12.0-16.0)
[2017-01-29 06:00] LABS: Basophils # 0.1 10*3/uL (0.0-0.2); Eosinophils # 0.1 10*3/uL (0.0-0.87); Eosinophils % 1.9 % (0.00-10.9); Hematocrit 24.8 VOL% (35.7-47.0); Hemoglobin 7.6 GM/DL (12.0-16.0); Immature Granulocytes % 0.7 %; Immature Granulocytes Absolute 0.05 #; Lymphocytes # 0.8 10*3/uL (1.4-4.0); Lymphocytes % 11.5 % (21.3-54.2); Mean Corpuscular HGB Conc 30.6 GM/DL (32-36); Mean Corpuscular Hemoglobin 23 PG (27-34); Mean Corpuscular Volume 74.7 FL (87-102); Mean Platelet Volume 9.6 FL (9.6-12.0); Monocytes # 0.3 10*3/uL (0.11-0.8); Monocytes % 4.6 % (1.7-12.7); NRBC # 0.04 10*3/uL; Neutrophils # 5.6 10*3/uL (1.4-7.4); Neutrophils % 80.3 % (38.7-73.9); Platelet Count 328 T/CUMM (130-400); Red Blood Count 3.32 MC/CUMM (3.8-5.5)
[2017-01-29 06:41] LABS: Calcium 8.8 MG/DL (8.5-10.1); Magnesium 2.1 MG/DL (1.8-2.4); Osmolality,Calculated 274.5 MOS/KG (273-304); Potassium 3.5 MMOL/L (3.5-5.1)
[2017-01-29 06:43] LABS: Bilirubin,Direct 0.94 MG/DL (0.0-0.20); Bilirubin,Indirect 1.8 MG/DL (0.0-1.0); Bilirubin,Total 2.7 MG/DL (0.2-1.0); Total Protein 7.8 G/DL (6.4-8.3)
[2017-01-29 06:44] LABS: Giant Platelets Few; Hypochromasia 1+; Ovalocytes Slight; Platelet Estimate Adequate
[2017-01-29 06:45] LABS: Microcytosis 1+
[2017-01-29 07:46] LABS: Albumin (SPE) 3.9 G/DL (3.2-5.3); Albumin (SPE) Rel % 51.1 %; Alpha 1 (SPE) 0.4 G/DL (0.1-0.4); Alpha 1 (SPE) Rel % 4.9 %; Alpha 2 (SPE) 0.7 G/DL (0.4-1.0); Alpha 2 (SPE) Rel % 8.9 %; Beta (SPE) 0.8 G/DL (0.5-1.1); Beta (SPE) Rel % 10.8 %; Gamma (SPE) 1.9 G/DL (0.7-1.7); Gamma (SPE) Rel % 24.3 %; Total Protein (Chem) 7.7 G/DL (6.4-8.3)
[2017-01-29 07:47] LABS: Immunoglobulin G (Chem) 1920 MG/DL (700-1600)
[2017-01-29 07:48] LABS: Immunoglobulin A (Chem) 281 MG/DL (70-400); Immunoglobulin M (Chem) 225 MG/DL (40-230)
[2017-01-29] MEDS: INSULIN LISPRO 100 UNIT/ML SUBCUT SCH ×4 (08:01→21:20)
[2017-01-29] MEDS: LISINOPRIL 5 MG TABLET PO SCH (08:37)
[2017-01-29] MEDS: PANTOPRAZOLE 40 MG TABLET PO SCH (08:37)
[2017-01-29] MEDS: FUROSEMIDE 40 MG/4 ML VIAL IV SCH ×2 (08:37→17:01)
--- NOTE | 2017-01-29 08:55 | Cardiology Progress Note ---
<Ros Carter Macho - Last Filed: 01/29/17 14:07> Assessment and Plan - Time spent with patient Time spent with patient: Less than 30 minutes (1) Anemia Status: Acute Assessment and plan: See plan of care listed below. Current Visit: Yes (2) Dyspnea Status: Acute Assessment and plan: See plan of care listed below. Current Visit: Yes Qualifiers: Dyspnea type: shortness of breath Qualified Code(s): R06.02 - Shortness of breath; R06.00 - Dyspnea, unspecified; R06.01 - Orthopnea (3) Ascites Status: Acute Assessment and plan: See plan of care listed below. Current Visit: Yes (4) Hypertension Status: Acute Assessment and plan: See plan of care listed below. Current Visit: Yes (5) Elevated LFTs Status: Acute Assessment and plan: See plan of care listed below. Current Visit: Yes Cardiology - PN: Subj Interval history: Accredited Farm Manager: new to Dr. Lau PCP: none SUMMARY: Ms. Luong is a 51 year old female who was brought to our ED via EMS for shortness of breath, BLE edema, and abdominal fullness/ bloating that has been progressively worsening over the past 2 weeks. Her H&H on arrival was 3.0 and 12.0. PUBLIC HEALTH SOCIAL WORKER was consulted due to heavy menstrual cycles over the past year, some of her periods lasting for a month at a time. She had a BNP of 306 on admission and we were consulted to see her due to possible heart failure. 2016: After receiving 6 units of blood, Ms. Luong is feeling much improved today. Her echocardiogram yesterday revealed EF 50-55%, mild left atrial enlargement, mild to moderate MR, mild to moderate TR. Lung sounds remain clear. From a cardiac standpoint, she is stable and we will drop off her case. Please feel free to reconsult us if we can be of further assistance or if new cardiac issues arise. ASSESSMENT/PLAN: 1. ANEMIA - PUBLIC HEALTH SOCIAL WORKER has seen her and recommended hysterectomy in the next couple of weeks. Stool for occult was negative. She has received 6 units of PRBCs and H&H is up to 7.6 and 24.8 today. 2. DYSPNEA - It is not thought that her dyspnea is related to any kind of heart failure. Echocardiogram revealed EF 50-55%. 3. ASCITES - Given her elevated LFTs and positive IgG, it is possible this is liver related. Will defer further evaluation and management to hospital medicine. 4. HYPERTENSION - Blood pressure has been elevated since admission. She is also noted to have a HgbA1C of 7.4. We'll start her on a low-dose ARUNA inhibitor and continue to monitor and adjust accordingly. 5. ELEVATED LFTs - Abdomen/pelvis CT revealed enlarged fibroid uterus, hepatomegaly, ascites, and anasarca. Abdominal ultrasound revealed hepatomegaly with diffuse steatosis and trace ascites. Hepatitis panel was negative. LFTs have been elevated since admission and IgG was elevated at 1920. Exam (Progress Note) - Constitutional Vitals: Period Temp Pulse Resp BP Sys/Arias Pulse Ox Last 24 Hr 97.3 F-98.7 F 65-84 13-26 117-174/56-97 94-100 Exam: General appearance: Appears well. Pleasant and cooperative. Overweight, no acute distress. Head exam: Present: normal inspection, normocephalic, atraumatic. Absent: hematoma, laceration Eye exam: Present: EOMI. Absent: conjunctival injection, nystagmus, periorbital swelling, scleral icterus, laceration to eyelids, jaundice Pupils: Present: PERRL. Absent: constricted, dilated, fixed, irregular, unequal ENT exam: Present: normal exam, normal external ear exam, mucous membranes moist. Neck exam: Present: normal inspection, midline trachea. Absent: masses, lymphadenopathy, tenderness, thyromegaly, carotid bruit Respiratory exam: Present: clear to auscultation bilaterally. Absent: accessory muscle use, chest wall tenderness, rales, rhonchi Cardiovascular exam: Present: regular rate and rhythm. Unable to assess for JVD due to habitus. Absent: gallop, rubs GI/Abdominal exam: Present: normal bowel sounds. Unable to palpate for hepatomegaly or splenomegaly due to habitus. Absent: hernia, mass, tenderness. Extremities exam: Present: Normal Gait, No Clubbing, No Cyanosis, Upper Extr. Pulses 2+, Lower Extr. Pulses 2+. Capillary refill less than 3 seconds. Musculoskeletal: Present: No Fluid Collection, No Pain, Normal Range of Motion Back exam: Present: normal inspection. Absent: muscle spasm, vertebral tenderness Neurological exam: Present: awake, alert, oriented X3, Moves all extremities well without hemiparesis or paralysis. Grossly intact without resting or essential tremor Psychiatric exam: Present: normal affect, normal mood Skin exam: Present: normal color, warm, dry, intact. Absent: cyanosis, diaphoretic, rash, urticaria Result/EKG - Labs CBC & BMP: 01/29/17 04:17 01/29/17 04:17 Lab Results: I have reviewed the past 24 hour labs Labs: Laboratory Results - last 24 hr 01/27/17 01/28/17 01/28/17 17:58 05:28 05:28 WBC RBC Hgb Hct MCV MCH MCHC RDW Plt Count MPV Neut % (Auto) Lymph % (Auto) Meigs % (Auto) Eos % (Auto) Baso % (Auto) Neut # (Auto) Lymph # (Auto) Meigs # (Auto) Eos # (Auto) Baso # (Auto) Immature Gran % Nucleated RBC % Immature Gran # Nucleated RBCs # Platelet Estimate Giant Platelets Immature Plt Fraction Hypochromasia Microcytosis Ovalocytes D-Dimer, Quantitative Sodium Potassium Chloride Carbon Dioxide Anion Gap BUN Creatinine GFR Calculation BUN/Creatinine Ratio Glucose POC Glucose Calculated Osmolality Calcium Magnesium Total Bilirubin Direct Bilirubin Indirect Bilirubin AST ALT Alkaline Phosphatase B-Natriuretic Peptide Total Protein 7.7 Albumin IgG 1920 H IgG Total IgA 281 IgA Total IgM 225 IgM Total Serum Total Protein PEP Albumin (PEP) Albumin (relative) Uuweu-9-Eewqvgjo Ztuzn-5-Oxybmhlf rel Pwoen-8-Hilapnug Loalb-0-Dmalrztt rel Uppo-6-Hvktnikm Pplg-2-Rwgiucnf rel Gamma Globulins Gamma Globulins rel Hepatitis A IgM Ab Negative Hep Bs Antigen Negative Hep B Core IgM Ab Negative Hepatitis C Antibody Negative Blood Type Antibody Screen Crossmatch See Detail Blood Bank Comment 01/28/17 01/28/17 01/28/17 05:28 09:24 09:24 WBC RBC Hgb 6.0 L* Hct 20.3 L MCV MCH MCHC RDW Plt Count MPV Neut % (Auto) Lymph % (Auto) Meigs % (Auto) Eos % (Auto) Baso % (Auto) Neut # (Auto) Lymph # (Auto) Meigs # (Auto) Eos # (Auto) Baso # (Auto) Immature Gran % Nucleated RBC % Immature Gran # Nucleated RBCs # Platelet Estimate Giant Platelets Immature Plt Fraction Hypochromasia Microcytosis Ovalocytes D-Dimer, Quantitative 5.2 Sodium Potassium Chloride Carbon Dioxide Anion Gap BUN Creatinine GFR Calculation BUN/Creatinine Ratio Glucose POC Glucose Calculated Osmolality Calcium Magnesium Total Bilirubin Direct Bilirubin Indirect Bilirubin AST ALT Alkaline Phosphatase B-Natriuretic Peptide Total Protein Albumin IgG IgG Total 1920 H IgA IgA Total 281 IgM IgM Total 225 Serum Total Protein PEP 7.7 Albumin (PEP) 3.9 Albumin (relative) 51.1 Qvyqa-1-Qrdbxlqy 0.4 Vznbx-3-Cskjutfq rel 4.9 Lqpww-4-Abqnyxte 0.7 Vveiy-5-Qcfliinc rel 8.9 Ezfk-9-Uhmvlpqj 0.8 Amxf-1-Imjdqffo rel 10.8 Gamma Globulins 1.9 H Gamma Globulins rel 24.3 Hepatitis A IgM Ab Hep Bs Antigen Hep B Core IgM Ab Hepatitis C Antibody Blood Type Antibody Screen Crossmatch Blood Bank Comment 01/28/17 01/28/17 01/28/17 09:48 11:47 16:01 WBC RBC Hgb Hct MCV MCH MCHC RDW Plt Count MPV Neut % (Auto) Lymph % (Auto) Meigs % (Auto) Eos % (Auto) Baso % (Auto) Neut # (Auto) Lymph # (Auto) Meigs # (Auto) Eos # (Auto) Baso # (Auto) Immature Gran % Nucleated RBC % Immature Gran # Nucleated RBCs # Platelet Estimate Giant Platelets Immature Plt Fraction Hypochromasia Microcytosis Ovalocytes D-Dimer, Quantitative Sodium Potassium Chloride Carbon Dioxide Anion Gap BUN Creatinine GFR Calculation BUN/Creatinine Ratio Glucose POC Glucose 158 H 135 H Calculated Osmolality Calcium Magnesium Total Bilirubin Direct Bilirubin Indirect Bilirubin AST ALT Alkaline Phosphatase B-Natriuretic Peptide Total Protein Albumin IgG IgG Total IgA IgA Total IgM IgM Total Serum Total Protein PEP Albumin (PEP) Albumin (relative) Xonxo-8-Micyfuvd Lgxnw-9-Taxuslxg rel Skkyw-2-Ipmblbtb Hgfeu-5-Wsdtjgoo rel Ojpm-3-Otvpzvmj Dpyq-5-Hywksslu rel Gamma Globulins Gamma Globulins rel Hepatitis A IgM Ab Hep Bs Antigen Hep B Core IgM Ab Hepatitis C Antibody Blood Type Cancelled Antibody Screen Cancelled Crossmatch See Detail Blood Bank Comment Cancelled 01/28/17 01/28/17 01/29/17 17:14 20:12 04:17 WBC 7.0 RBC 3.32 L D Hgb 7.5 L D 7.6 L Hct 24.3 L 24.8 L MCV 74.7 L MCH 23 L MCHC 30.6 L RDW 24.0 H Plt Count 328 MPV 9.6 Neut % (Auto) 80.3 H Lymph % (Auto) 11.5 L Meigs % (Auto) 4.6 Eos % (Auto) 1.9 Baso % (Auto) 1.0 H Neut # (Auto) 5.6 Lymph # (Auto) 0.8 L Meigs # (Auto) 0.3 Eos # (Auto) 0.1 Baso # (Auto) 0.1 Immature Gran % 0.7 Nucleated RBC % 0.6 Immature Gran # 0.05 Nucleated RBCs # 0.04 Platelet Estimate Adequate Giant Platelets Few Immature Plt Fraction 0.0 Hypochromasia 1+ Microcytosis 1+ Ovalocytes Slight D-Dimer, Quantitative Sodium Potassium Chloride Carbon Dioxide Anion Gap BUN Creatinine GFR Calculation BUN/Creatinine Ratio Glucose POC Glucose 127 H Calculated Osmolality Calcium Magnesium Total Bilirubin Direct Bilirubin Indirect Bilirubin AST ALT Alkaline Phosphatase B-Natriuretic Peptide Total Protein Albumin IgG IgG Total IgA IgA Total IgM IgM Total Serum Total Protein PEP Albumin (PEP) Albumin (relative) Bhzau-9-Ubnuuydy Jqebg-9-P[place]aguer rel Doarf-8-Ozcbowow Imsor-9-Ycswlshy rel Nwzd-4-Vmqaaafe Zost-4-Ejltmyta rel Gamma Globulins Gamma Globulins rel Hepatitis A IgM Ab Hep Bs Antigen Hep B Core IgM Ab Hepatitis C Antibody Blood Type Antibody Screen Crossmatch Blood Bank Comment 01/29/17 01/29/17 01/29/17 04:17 04:17 04:19 WBC RBC Hgb Hct MCV MCH MCHC RDW Plt Count MPV Neut % (Auto) Lymph % (Auto) Meigs % (Auto) Eos % (Auto) Baso % (Auto) Neut # (Auto) Lymph # (Auto) Meigs # (Auto) Eos # (Auto) Baso # (Auto) Immature Gran % Nucleated RBC % Immature Gran # Nucleated RBCs # Platelet Estimate Giant Platelets Immature Plt Fraction Hypochromasia Microcytosis Ovalocytes D-Dimer, Quantitative Sodium 139 Potassium 3.5 Chloride 106 Carbon Dioxide 24 Anion Gap 12.5 BUN 7 Creatinine 0.90 GFR Calculation 111 BUN/Creatinine Ratio 7.00 Glucose 97 POC Glucose Calculated Osmolality 274.5 Calcium 8.8 Magnesium 2.1 Total Bilirubin 2.70 H Direct Bilirubin 0.940 H Indirect Bilirubin 1.8 H AST 30 ALT 60 H Alkaline Phosphatase 250 H B-Natriuretic Peptide 276 H Total Protein 7.8 Albumin 3.0 L IgG IgG Total IgA IgA Total IgM IgM Total Serum Total Protein PEP Albumin (PEP) Albumin (relative) Hfnmn-8-Ibmvrttw Onpnz-0-Njyojrtq rel Zbwfz-2-Jmfioagp Oudjg-9-Bedfmlnj rel Mjpd-6-Ocpnjpur Lvkv-8-Ioyzqvto rel Gamma Globulins Gamma Globulins rel Hepatitis A IgM Ab Hep Bs Antigen Hep B Core IgM Ab Hepatitis C Antibody Blood Type Antibody Screen Crossxoomparktch Blood Bank Comment 01/29/17 07:13 WBC RBC Hgb Hct MCV MCH MCHC RDW Plt Count MPV Neut % (Auto) Lymph % (Auto) Meigs % (Auto) Eos % (Auto) Baso % (Auto) Neut # (Auto) Lymph # (Auto) Meigs # (Auto) Eos # (Auto) Baso # (Auto) Immature Gran % Nucleated RBC % Immature Gran # Nucleated RBCs # Platelet Estimate Giant Platelets Immature Plt Fraction Hypochromasia Microcytosis Ovalocytes D-Dimer, Quantitative Sodium Potassium Chloride Carbon Dioxide Anion Gap BUN Creatinine GFR Calculation BUN/Creatinine Ratio Glucose POC Glucose 129 H Calculated Osmolality Calcium Magnesium Total Bilirubin Direct Bilirubin Indirect Bilirubin AST ALT Alkaline Phosphatase B-Natriuretic Peptide Total Protein Albumin IgG IgG Total IgA IgA Total IgM IgM Total Serum Total Protein PEP Albumin (PEP) Albumin (relative) Rszfn-4-Mmmzgsyy Rgwmt-2-Rxhstgqn rel Upkyf-7-Rlybjigq Rsecu-0-Kxrvgqpb rel Awji-8-Swtljjtn Dzne-9-Amyfuvqy rel Gamma Globulins Gamma Globulins rel Hepatitis A IgM Ab Hep Bs Antigen Hep B Core IgM Ab Hepatitis C Antibody Blood Type Antibody Screen Crossnctch Blood Bank Comment - EKG EKG results: interpreted by me, sinus rhythm <RoyceKatiana - Last Filed: 01/29/17 17:44> Cardiology - PN: Subj Interval history: I have personally interviewed and evaluated the patient, reviewed the chart and discussed medical decision-making with practitioner Raul. I have read this note and agree with her documentation here in. Her presentation is consistent with symptomatic severe anemia. She does not really appear to be having an acute cardiac issue, so we will sign off. We will defer further workup of her transaminitis and positive IgG to the hospitalist service. Exam (Progress Note) - Constitutional Vitals: Period Temp Pulse Resp BP Sys/Arias Pulse Ox Last 24 Hr 97.3 F-98.1 F 65-94 15-24 124-158/56-97 86-100 Result/EKG - Labs CBC & BMP: 01/29/17 04:17 01/29/17 04:17 Labs: Laboratory Results - last 24 hr 01/28/17 01/28/17 01/28/17 05:28 09:48 17:14 WBC RBC Hgb 7.5 L D Hct 24.3 L MCV MCH MCHC RDW Plt Count MPV Neut % (Auto) Lymph % (Auto) Meigs % (Auto) Eos % (Auto) Baso % (Auto) Neut # (Auto) Lymph # (Auto) Meigs # (Auto) Eos # (Auto) Baso # (Auto) Immature Gran % Nucleated RBC % Immature Gran # Nucleated RBCs # Platelet Estimate Giant Platelets Immature Plt Fraction Hypochromasia Microcytosis Ovalocytes Sodium Potassium Chloride Carbon Dioxide Anion Gap BUN Creatinine GFR Calculation BUN/Creatinine Ratio Glucose POC Glucose Calculated Osmolality Calcium Magnesium Total Bilirubin Direct Bilirubin Indirect Bilirubin AST ALT Alkaline Phosphatase B-Natriuretic Peptide Total Protein Albumin IgG Total 1920 H IgA Total 281 IgM Total 225 Pro Electrophoresis Int See comment Serum Total Protein PEP 7.7 Albumin (PEP) 3.9 Albumin (relative) 51.1 Vyfph-1-Bxieeknn 0.4 Rxlde-0-Lbzfmoyu rel 4.9 Uejra-2-Behhhslp 0.7 Rgwvt-6-Ypcjpgcx rel 8.9 Lvvo-7-Iczumsjz 0.8 Nqzx-1-Jcuxdbvj rel 10.8 Gamma Globulins 1.9 H Gamma Globulins rel 24.3 YOSELIN Interpretation See comment Crossmatch See Detail 01/28/17 01/29/17 01/29/17 20:12 04:17 04:17 WBC 7.0 RBC 3.32 L D Hgb 7.6 L Hct 24.8 L MCV 74.7 L MCH 23 L MCHC 30.6 L RDW 24.0 H Plt Count 328 MPV 9.6 Neut % (Auto) 80.3 H Lymph % (Auto) 11.5 L Meigs % (Auto) 4.6 Eos % (Auto) 1.9 Baso % (Auto) 1.0 H Neut # (Auto) 5.6 Lymph # (Auto) 0.8 L Meigs # (Auto) 0.3 Eos # (Auto) 0.1 Baso # (Auto) 0.1 Immature Gran % 0.7 Nucleated RBC % 0.6 Immature Gran # 0.05 Nucleated RBCs # 0.04 Platelet Estimate Adequate Giant Platelets Few Immature Plt Fraction 0.0 Hypochromasia 1+ Microcytosis 1+ Ovalocytes Slight Sodium 139 Potassium 3.5 Chloride 106 Carbon Dioxide 24 Anion Gap 12.5 BUN 7 Creatinine 0.90 GFR Calculation 111 BUN/Creatinine Ratio 7.00 Glucose 97 POC Glucose 127 H Calculated Osmolality 274.5 Calcium 8.8 Magnesium 2.1 Total Bilirubin Direct Bilirubin Indirect Bilirubin AST ALT Alkaline Phosphatase B-Natriuretic Peptide Total Protein Albumin IgG Total IgA Total IgM Total Pro Electrophoresis Int Serum Total Protein PEP Albumin (PEP) Albumin (relative) Eujsa-7-Ulwnmsba Xzfte-6-Wjesbgbu rel Stuod-0-Oslvjnfo Lpbxp-2-Ehzeaphq rel Ntyk-0-Xxwvyptl Cmxl-1-Ttjrqene rel Gamma Globulins Gamma Globulins rel YOSELIN Interpretation Crossmatch 01/29/17 01/29/17 01/29/17 04:17 04:19 07:13 WBC RBC Hgb Hct MCV MCH MCHC RDW Plt Count MPV Neut % (Auto) Lymph % (Auto) Meigs % (Auto) Eos % (Auto) Baso % (Auto) Neut # (Auto) Lymph # (Auto) Meigs # (Auto) Eos # (Auto) Baso # (Auto) Immature Gran % Nucleated RBC % Immature Gran # Nucleated RBCs # Platelet Estimate Giant Platelets Immature Plt Fraction Hypochromasia Microcytosis Ovalocytes Sodium Potassium Chloride Carbon Dioxide Anion Gap BUN Creatinine GFR Calculation BUN/Creatinine Ratio Glucose POC Glucose 129 H Calculated Osmolality Calcium Magnesium Total Bilirubin 2.70 H Direct Bilirubin 0.940 H Indirect Bilirubin 1.8 H AST 30 ALT 60 H Alkaline Phosphatase 250 H B-Natriuretic Peptide 276 H Total Protein 7.8 Albumin 3.0 L IgG Total IgA Total IgM Total Pro Electrophoresis Int Serum Total Protein PEP Albumin (PEP) Albumin (relative) Jrwew-0-Udpxpsom Wwktc-5-Qtakzyiy rel Edkwh-3-Glxsvgpk Pcfiz-4-Nehknlce rel Xekk-1-Bsvcnrnf Qsgj-8-Hokhebsm rel Gamma Globulins Gamma Globulins rel YOSELIN Interpretation Crossmatch 01/29/17 01/29/17 11:52 16:39 WBC RBC Hgb Hct MCV MCH MCHC RDW Plt Count MPV Neut % (Auto) Lymph % (Auto) Meigs % (Auto) Eos % (Auto) Baso % (Auto) Neut # (Auto) Lymph # (Auto) Meigs # (Auto) Eos # (Auto) Baso # (Auto) Immature Gran % Nucleated RBC % Immature Gran # Nucleated RBCs # Platelet Estimate Giant Platelets Immature Plt Fraction Hypochromasia Microcytosis Ovalocytes Sodium Potassium Chloride Carbon Dioxide Anion Gap BUN Creatinine GFR Calculation BUN/Creatinine Ratio Glucose POC Glucose 123 H 161 H Calculated Osmolality Calcium Magnesium Total Bilirubin Direct Bilirubin Indirect Bilirubin AST ALT Alkaline Phosphatase B-Natriuretic Peptide Total Protein Albumin IgG Total IgA Total IgM Total Pro Electrophoresis Int Serum Total Protein PEP Albumin (PEP) Albumin (relative) Jngfv-9-Javoczgz Hgwxq-6-Bndojesa rel Cmsfj-3-Epmlffbo Fyxzb-4-Rulncqlb rel Aakh-0-Jerjfnsw Llpp-5-Jzrixcvl rel Gamma Globulins Gamma Globulins rel YOSELIN Interpretation Crossmatch
--- NOTE | 2017-01-29 10:13 | Hospitalist Progress Note ---
Assessment and Plan (1) Symptomatic anemia Status: Acute Assessment and plan: Impression: 1. Acute on chronic anemia Plan: Transfer to room. Remove Johnson catheter. Hope to discharge soon, if she remains hemodynamically stable. This note was completed using [employer] voice recognition software. There may be angle shear operator errors as a result. Current Visit: Yes Hospitalist: Subjective Interval history: Follow-up probable acute on chronic iron deficiency anemia. The patient is feeling much better after transfusion. She had a normal echocardiogram. ATTENDING PATHOLOGIST has seen her, and has recommended hysterectomy in the next few weeks. We will need to get her hematologic picture stabilized first. Exam - Constitutional Vitals: Period Temp Pulse Resp BP Sys/Arias Pulse Ox Last 24 Hr 97.3 F-98.7 F 65-85 13-26 117-152/56-97 94-100 Vital signs are noted above. Heart is regular with a 2/6 systolic murmur and no gallop. Lungs are clear with no rales or wheezes. She is awake and alert, sitting at the bedside getting a bath. Results - Labs CBC & BMP: 01/29/17 04:17 01/29/17 04:17 Lab Results: I have reviewed the past 24 hour labs (Hemoglobin is stable following transfusion)
[2017-01-29] MEDS: BENZONATATE 100 MG CAPSULE PO PRN ×2 (10:48→21:19)
[2017-01-29] MEDS: FERROUS SULFATE 325 MG TABLET PO SCH (21:19)
[2017-01-30 06:38] LABS: Basophils % 0.4 % (0.0-0.8); Eosinophils # 0.2 10*3/uL (0.0-0.87); Eosinophils % 2.8 % (0.00-10.9); Hematocrit 24.1 VOL% (35.7-47.0); Hemoglobin 7.5 GM/DL (12.0-16.0); Immature Granulocytes Absolute 0.07 #; Lymphocytes % 14.3 % (21.3-54.2); Mean Corpuscular HGB Conc 31.1 GM/DL (32-36); Mean Corpuscular Hemoglobin 23 PG (27-34); Mean Corpuscular Volume 74.6 FL (87-102); Mean Platelet Volume 9.3 FL (9.6-12.0); Monocytes # 0.5 10*3/uL (0.11-0.8); Monocytes % 7.5 % (1.7-12.7); NRBC # 0.03 10*3/uL; Neutrophils # 5.1 10*3/uL (1.4-7.4); Platelet Count 266 T/CUMM (130-400); Red Blood Count 3.23 MC/CUMM (3.8-5.5); Red Cell Distribution Width 24.7 % (9.3-17.3); White Blood Count 6.9 T/CUMM (4-12)
[2017-01-30 07:06] LABS: Calcium 8.5 MG/DL (8.5-10.1); Magnesium 1.9 MG/DL (1.8-2.4); Osmolality,Calculated 276.4 MOS/KG (273-304); Potassium 3.4 MMOL/L (3.5-5.1)
[2017-01-30 07:14] LABS: Hypochromasia 1+; Platelet Estimate Adequate
[2017-01-30 07:15] LABS: Giant Platelets Few; Microcytosis 1+; Ovalocytes Slight
[2017-01-30] MEDS: INSULIN LISPRO 100 UNIT/ML SUBCUT SCH ×4 (08:15→22:49)
[2017-01-30] MEDS: FERROUS SULFATE 325 MG TABLET PO SCH ×2 (09:17→22:29)
[2017-01-30] MEDS: LISINOPRIL 5 MG TABLET PO SCH (09:18)
[2017-01-30] MEDS: PANTOPRAZOLE 40 MG TABLET PO SCH (09:21)
[2017-01-30] MEDS: BENZONATATE 100 MG CAPSULE PO PRN ×2 (09:53→17:06)
[2017-01-30] MEDS: FUROSEMIDE 40 MG/4 ML VIAL IV SCH ×2 (11:07→17:08)
--- NOTE | 2017-01-30 11:50 | Hospitalist Progress Note ---
Assessment and Plan (1) Symptomatic anemia Status: Acute Assessment and plan: 1)anemia from menometrorrhagia- transfused. for outpatient visit with Dr Ford to arrnge hysterectomy. 2)ascites, lower extremity edema- volume overload, diuresing. No prior diagnosis of cirrhosis but she has fatty liver on CT scan and the presumption is that her ascites is from liver dysfunction. 3)morbid obesity 4)no heart failure on echo. She does not have heart failure. Current Visit: Yes (2) Ascites Status: Acute Current Visit: Yes (3) Leg edema Status: Acute Current Visit: Yes (4) Diabetes mellitus Status: Acute Current Visit: Yes (5) Menometrorrhagia Status: Acute Current Visit: Yes Hospitalist: Subjective Interval history: Mrs Luong is feeling better with stable H&H. She understands plan for outpatient hysterectomy. She has lower extremity edema that has improved but is still present and she would like to stay for another day of IV lasix prior to discharge. Exam - Constitutional Vitals: Period Temp Pulse Resp BP Sys/Arias Pulse Ox Last 24 Hr 97.3 F-97.9 F 77-93 18-20 116-163/55-80 86-98 General appearance: no acute distress, morbidly obese - Eye Eye exam: Present: EOMI. Absent: scleral icterus - Respiratory Respiratory exam: Present: clear to auscultation bilaterally - Cardiovascular Cardiovascular exam: Present: regular rate and rhythm - GI/Abdominal GI/Abdominal exam: Present: normal bowel sounds, soft. Absent: tenderness - Extremities Exam Extremities exam: Present: edema (2+ lower extremity edema bilaterally) Results - Labs CBC & BMP: 01/30/17 06:19 01/30/17 06:19 Lab Results: I have reviewed the past 24 hour labs
--- NOTE | 2017-01-30 15:12 | Physician Query Form ---
CLICK EDIT DOCUMENT TO SELECT QUERY ANSWER --> OK --> SIGN Paola Posadas RN Clinical Conservation Engineer W) [phone] (f) [phone] [email or web address] PROVIDERS: Make your selection(s) from the choices in EACH section by typing an "x" and enter comments in the comment section. Please use your independent medical judgment in providing your response. This request does not imply that any particular answer is desired or expected. CLINICAL INDICATORS: (Providers should not edit this section) Based on documentation of "Acute anemia" "Suspect anemia related to heavy and prolonged menstrual periods" "due to the extreme size of her uterus a hysterectomy would be in her best interest as the bleeding will continue until that is done" Set up date for outpatient hysterectomy. Transfused 6 units of PRBC. Based on the above, could you clarify which of the following conditions you are evaluating, treating, and/or monitoring? ( ) Blood loss anemia ( ) acute ( ) chronic ( ) acute on chronic ( x) Acute blood loss anemia on baseline chronic anemia ( ) Acute blood loss anemia as a complication of a procedure ( ) Iron deficiency anemia not associated with blood loss ( ) Dilutional anemia due to IV fluids ( ) Anemia due to chemotherapy ( ) Anemia due to neoplastic disease ( ) Anemia due to chronic kidney disease ( ) Pernicious anemia ( ) Aplastic anemia ( ) Hemolytic anemia ( ) immune ( ) non-immune - please specify cause: ( ) Anemia due to other condition, please specify: ( ) Clinically unable to determine COMMENTS: PLEASE ALSO DOCUMENT RESPONSE IN PROGRESS NOTES AND/OR DISCHARGE SUMMARY Use of terms such as suspected, likely, or probable (associated with a specific diagnosis that is being evaluated, monitored, or treated as if it exists) are acceptable and can be restated in the discharge summary if not ruled out. MTDD
[2017-01-31 04:21] LABS: Basophils # 0.1 10*3/uL (0.0-0.2); Basophils % 0.8 % (0.0-0.8); Eosinophils # 0.2 10*3/uL (0.0-0.87); Hematocrit 25.3 VOL% (35.7-47.0); Hemoglobin 7.7 GM/DL (12.0-16.0); Immature Granulocytes Absolute 0.06 #; Lymphocytes # 0.9 10*3/uL (1.4-4.0); Lymphocytes % 14.7 % (21.3-54.2); Mean Corpuscular HGB Conc 30.4 GM/DL (32-36); Mean Corpuscular Hemoglobin 23 PG (27-34); Mean Platelet Volume 9.5 FL (9.6-12.0); Monocytes # 0.6 10*3/uL (0.11-0.8); Monocytes % 9.9 % (1.7-12.7); Neutrophils # 4.2 10*3/uL (1.4-7.4); Neutrophils % 69.6 % (38.7-73.9); Platelet Count 275 T/CUMM (130-400); Red Blood Count 3.33 MC/CUMM (3.8-5.5); Red Cell Distribution Width 25.7 % (9.3-17.3)
[2017-01-31 04:53] LABS: Calcium 8.6 MG/DL (8.5-10.1); Magnesium 1.8 MG/DL (1.8-2.4); Osmolality,Calculated 281.1 MOS/KG (273-304); Potassium 3.2 MMOL/L (3.5-5.1)
[2017-01-31] MEDS: BENZONATATE 100 MG CAPSULE PO PRN ×2 (05:16→09:44)
[2017-01-31 05:26] LABS: Anisocytosis 2+; Hypochromasia 1+; Microcytosis 1+; Platelet Estimate Normal
[2017-01-31] MEDS ORDERED: POTASSIUM CHLORIDE 20 MEQ TABLET PO ONE (07:18)
--- NOTE | 2017-01-31 08:49 | Discharge Summary ---
<Kamini Cooney - Last Filed: 01/31/17 09:16> Hospital Course - Hospital Course Hospital Course: 51-year-old -[place] female admitted by the hospitalist service on 2016 with shortness of breath, bilateral lower extremity edema, and abdominal bloating. CT scan of the abdomen and pelvis showed hepatomegaly, ascites, and anasarca. Her abdominal ultrasound revealed hepatomegaly with diffuse steatosis and trace ascites. Her hepatitis panel was negative, LFTs were elevated and IgG was elevated. She has IgG polyclonal gammopathy so she has been started on Aldactone, Lasix, and potassium and will need to follow-up with her primary care physician in 1 week with a BMP. She may need further follow- up with a GI physician. She also was profoundly anemic with an H&H of 3/12 upon admission due to Menometrorrhagia. Patient received a total of 6 units of blood this hospital admission with a discharge H&H of 7.7/25.3. Patient states she still has some mild vaginal bleeding but this is much improved. She feels a lot better and she is asymptomatic. She was seen by Dr. Pryor from [facility] who recommends a complete hysterectomy when her blood counts have stabilized to 30. Patient will need to follow-up with Dr. Pryor in her office in a few weeks. Cardiology also followed the patient with an echo that revealed an EF of 50-55%. They felt her shortness of breath was more due to liver dysfunction then any kind of heart failure. Patient has reached maximal hospital benefit and she is feeling better and ready for discharge. Complete discharge instructions were given to the patient. Care coordination, chart review, and completed discharge paperwork took approximately 37 minutes. - Time spent with patient Time with patient DS: Greater than 30 minutes Diagnosis - Discharge Diagnosis (1) Symptomatic anemia Status: Resolved (2) Ascites Status: Chronic (3) Dyspnea Status: Resolved (4) Hypertension Status: Chronic (5) Elevated LFTs Status: Chronic (6) Leg edema Status: Resolved (7) Enlarged uterus Status: Acute (8) Menometrorrhagia Status: Resolved Specialty Discharge - Follow Up or Referrals Follow up with: [facility], [facility] [Other] (1 week) Tram Ford MD [Physician] - 1 Week (hysterectomy) Debbie Drake MD [Physician] - Discharge Plan - Discharge Data Disposition: Disch To Home/Self Care Contact your physician if you experience:: Shortness of breath - Discharge Medications New Ferrous Sulfate Tab [Feosol Original Tab] 325 mg PO BID #60 tablet Furosemide Tab [Lasix Tab] 40 mg PO BID DIURETIC #60 tablet glyBURIDE [Glyburide] 2.5 mg PO AC BREAKFAST #30 tablet Potassium Chloride Cap/Tab [K Dur] 20 meq PO BID #20 tablet Spironolactone [Aldactone] 25 mg PO DAILY #30 tablet Lisinopril [Prinivil] 5 mg PO DAILY #30 tablet - Follow Up or Referral Follow Up: [facility], [facility] [Other] (1 week) Tram Ford MD [Physician] - 1 Week (hysterectomy) - Forms/Instructions Exam - Constitutional Vitals: Period Temp Pulse Resp BP Sys/Arias Pulse Ox Last 24 Hr 97.2 F-97.9 F 83-93 16-20 129-163/60-80 94-97 Exam: 51-year-old -[place] female, no acute distress, alert and oriented Chest clear CV regular rate and rhythm Abdomen soft and nontender Extremities with 2+ edema bilaterally Discharge Results Procedures and tests throughout hospitalization: Pending Orders 01/27/17 19:06 Occult Blood, Stool Stat 01/28/17 05:28 Myeloma Profile Routine 01/28/17 09:48 Red Blood Cells Leuko Red Routine 02/01/17 04:00 Basic Metabolic Panel w/Mg IN AM Comp Blood Count Auto Diff IN AM Labs on day of discharge: Labs from last 24 hours 01/31/17 01/31/17 01/31/17 07:47 04:07 04:07 WBC 6.0 RBC 3.33 L Hgb 7.7 L Hct 25.3 L MCV 76.0 L MCH 23 L MCHC 30.4 L RDW 25.7 H Plt Count 275 MPV 9.5 L Neut % (Auto) 69.6 Lymph % (Auto) 14.7 L [place] % (Auto) 9.9 Eos % (Auto) 4.0 Baso % (Auto) 0.8 Neut # (Auto) 4.2 Lymph # (Auto) 0.9 L [place] # (Auto) 0.6 Eos # (Auto) 0.2 Baso # (Auto) 0.1 Immature Gran % 1.0 Nucleated RBC % 0.0 Immature Gran # 0.06 Nucleated RBCs # 0.00 Platelet Estimate Normal Immature Plt Fraction 0.0 Hypochromasia 1+ Anisocytosis 2+ Microcytosis 1+ Sodium 142 Potassium 3.2 L Chloride 108 H Carbon Dioxide 28 Anion Gap 9.2 BUN 7 Creatinine 0.90 GFR Calculation 111 BUN/Creatinine Ratio 7.00 Glucose 118 H POC Glucose 96 Calculated Osmolality 281.1 Calcium 8.6 Magnesium 1.8 01/30/17 01/30/17 21:46 11:53 WBC RBC Hgb Hct MCV MCH MCHC RDW Plt Count MPV Neut % (Auto) Lymph % (Auto) [place] % (Auto) Eos % (Auto) Baso % (Auto) Neut # (Auto) Lymph # (Auto) [place] # (Auto) Eos # (Auto) Baso # (Auto) Immature Gran % Nucleated RBC % Immature Gran # Nucleated RBCs # Platelet Estimate Immature Plt Fraction Hypochromasia Anisocytosis Microcytosis Sodium Potassium Chloride Carbon Dioxide Anion Gap BUN Creatinine GFR Calculation BUN/Creatinine Ratio Glucose POC Glucose 143 H 128 H Calculated Osmolality Calcium Magnesium DS: Provider Date of admission: 01/27/17 21:07 Primary care physician: . 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 for Dumbwaiter Operator: Diabetes Education Consult Comment: newly diagnosed and seen by dietian and dietian instructed education Discharging clinician: BIJAN Corona Expected date of discharge: 01/31/17 <Niurka Villar - Last Filed: 01/31/17 12:38> Diagnosis - Discharge Diagnosis (1) Symptomatic anemia Status: Resolved (2) Ascites Status: Chronic (3) Leg edema Status: Resolved (4) Diabetes mellitus Status: Acute (5) Menometrorrhagia Status: Resolved Discharge Plan - Discharge Data Condition at Discharge: Stable Discharge Diet: diabetic diet, heart healthy Activity: resume usual activities as tolerated (keep legs elevated while you are sitting or lying down) - Forms/Instructions Additional Discharge Instructions: CBC and BMP in 1 week DS: Provider Date of admission: 01/27/17 21:07 I have seen Mrs Luong and examined her. She wants to go home today and I spent a lot of time trying to help her find affordable follow up as an outpatient. She will need CBC and BMP monitoring, a hysterctomy soon, and a PCP who will help her manage her ascites. The case maker has found money to buy her a month of her discharge meds. She has also made an additional appointment at [facility] with tube builder as that may be a more affordable way for her to get a hysterctomy. I have explained to her how to take her lasix and potassium and aldactone. BMP soon to check her potassium. I agree with the summary below from BIJAN Marshall.
[2017-01-31] MEDS: PANTOPRAZOLE 40 MG TABLET PO SCH (09:43)
[2017-01-31] MEDS: FUROSEMIDE 40 MG/4 ML VIAL IV SCH (09:43)
[2017-01-31] MEDS: INSULIN LISPRO 100 UNIT/ML SUBCUT SCH (09:44)
[2017-01-31] MEDS: FERROUS SULFATE 325 MG TABLET PO SCH (09:44)
[2017-01-31] MEDS: LISINOPRIL 5 MG TABLET PO SCH (09:44)
[2017-01-31 12:19] VITALS: BP 165/95
[2017-02-01 08:23] LABS: IFE Urine Interpretation SEE CMMENT
== END 2017-01-31 18:20 | disposition home or self-care (01) | DRG 812 ==
LOC: N.ED 17:35 → SUATTDRO 21:07 → N.EDINP 21:07 → N.CC 22:32 → N.4E 01-29 11:56
PROVIDERS: ADMIT Internal Medicine Infectious Disease; ATTEND Internal Medicine

== ENCOUNTER 2017-12-27 04:11 | Inpatient (IN) ==
[2017-12-27] MEDS ORDERED: SODIUM CHLORIDE 0.9% 1,000 ML IV PRN ×3 (05:21→22:06)
[2017-12-27 05:32] LABS: Basophils % 0.1 % (0.0-0.8); Eosinophils % 0.2 % (0.00-10.9); Immature Granulocytes % 0.9 %; Immature Granulocytes Absolute 0.12 #; Lymphocytes # 1.2 10*3/uL (1.4-4.0); Lymphocytes % 8.6 % (21.3-54.2); Mean Corpuscular HGB Conc 24.7 GM/DL (32-36); Mean Corpuscular Hemoglobin 18 PG (27-34); Mean Corpuscular Volume 73.5 FL (87-102); Mean Platelet Volume 10.3 FL (9.6-12.0); Monocytes # 0.7 10*3/uL (0.11-0.8); Monocytes % 5.3 % (1.7-12.7); NRBC # 0.13 10*3/uL; Neutrophils # 11.8 10*3/uL (1.4-7.4); Neutrophils % 84.9 % (38.7-73.9); Platelet Count 440 T/CUMM (130-400); Red Blood Count 1.32 MC/CUMM (3.8-5.5); Red Cell Distribution Width 22.8 % (9.3-17.3); White Blood Count 13.9 T/CUMM (4-12)
[2017-12-27 05:34] LABS: Hemoglobin 2.4 GM/DL (12.0-16.0)
[2017-12-27 05:35] LABS: Hematocrit 9.7 VOL% (35.7-47.0)
[2017-12-27 05:39] LABS: Albumin 2.9 G/DL (3.4-5.0); Bilirubin,Total 0.7 MG/DL (0.2-1.0); Calcium 8.5 MG/DL (8.5-10.1); Osmolality,Calculated 272.1 MOS/KG (273-304); Total Protein 7.9 G/DL (6.4-8.3)
[2017-12-27 05:40] LABS: INR 1.1; PT Patient Result 11.3 SECS; Partial Thromboplastin Time < 21.0 SECS (0-40)
[2017-12-27] MEDS ORDERED: FUROSEMIDE 40 MG/4 ML VIAL IV STA (07:33)
[2017-12-27] MEDS ORDERED: ACETAMINOPHEN 325 MG TABLET PO PRN (07:48)
[2017-12-27] MEDS ORDERED: GLUCAGON 1 MG VIAL IM PRN (07:48)
[2017-12-27] MEDS ORDERED: ALBUTEROL 2.5 MG/3 ML NEB RESP TX PRN (07:48)
[2017-12-27] MEDS ORDERED: DEXTROSE 50% 25 GM/50 ML VIAL IV PRN (07:48)
[2017-12-27 08:14] LABS: Lactic Acid 3.1 MMOL/L (0.4-2.0)
[2017-12-27 09:15] LABS: Apearance,Urine CLEAR (Clear); Bacteria,Urine Occasional /HPF (Few); Bilirubin,Urine Negative (Negative); Blood, Urine Large mg/dL (Negative); Glucose,Urine (UA) Negative (Negative); Ketones,Urine Negative (Negative); Mucus,Urine Occasional /LPF (Occasional); Nitrite,Urine Negative (Negative); Protein,Urine Negative; RBC,Urine 113 /HPF (0-4); Squamous Epithelial Cell,Urine Occasional /HPF (0-10); Urine Color Straw (Yellow); Urine Specific Gravity 1.004 (1.001-1.035); Urine Urobilinogen < 2.0 EU/DL (0.2-1.0); WBC,Urine 18 /HPF (0-6)
[2017-12-27 10:11] LABS: % Iron Saturation 32.4 % (18-50); Ferritin 8.6 ng/ml (8-252)
[2017-12-27 10:17] LABS: Thyroid Stimulating Hormone 2.72 uIU/ml (0.358-3.74)
[2017-12-27] MEDS: PANTOPRAZOLE 40 MG VIAL IV SCH (11:29)
[2017-12-27] MEDS: INSULIN LISPRO 100 UNIT/ML SUBCUT SCH ×3 (12:00→20:55)
[2017-12-27 16:14] LABS: Hemoglobin 4.8 GM/DL (12.0-16.0)
[2017-12-27 16:15] LABS: Hematocrit 15.7 VOL% (35.7-47.0)
[2017-12-27 16:37] LABS: Osmolality,Calculated 274.7 MOS/KG (273-304); Potassium 3.9 MMOL/L (3.5-5.1)
[2017-12-27] MEDS: cefTRIAXone 1,000 MG in SYRINGE 1 EACH IV SCH (16:38)
[2017-12-27] MEDS ORDERED: TRANEXAMIC ACID 1,000 MG/10 ML VIAL PO SCH (21:00)
[2017-12-27 21:49] LABS: Hematocrit 18.7 VOL% (35.7-47.0)
[2017-12-27 21:51] LABS: Hemoglobin 5.8 GM/DL (12.0-16.0)
[2017-12-28] MEDS: cefTRIAXone 1,000 MG in SYRINGE 1 EACH IV SCH ×2 (03:16→14:18)
[2017-12-28 05:32] LABS: Basophils # 0.1 10*3/uL (0.0-0.2); Basophils % 0.5 % (0.0-0.8); Eosinophils # 0.2 10*3/uL (0.0-0.87); Eosinophils % 1.8 % (0.00-10.9); Hematocrit 22.1 VOL% (35.7-47.0); Hematocrit 22.7 VOL% (35.7-47.0); Hemoglobin 7.3 GM/DL (12.0-16.0); Immature Granulocytes % 0.8 %; Immature Granulocytes Absolute 0.07 #; Lymphocytes # 0.8 10*3/uL (1.4-4.0); Mean Corpuscular Hemoglobin 27 PG (27-34); Mean Platelet Volume 10.8 FL (9.6-12.0); Monocytes # 0.4 10*3/uL (0.11-0.8); Monocytes % 4.8 % (1.7-12.7); NRBC # 0.07 10*3/uL; Neutrophils # 7.7 10*3/uL (1.4-7.4); Neutrophils % 83.1 % (38.7-73.9); Platelet Count 334 T/CUMM (130-400); Red Blood Count 2.73 MC/CUMM (3.8-5.5); Red Cell Distribution Width 20.1 % (9.3-17.3); White Blood Count 9.2 T/CUMM (4-12)
[2017-12-28 05:36] LABS: Hemoglobin 7.1 GM/DL (12.0-16.0)
[2017-12-28 06:01] LABS: Albumin 2.5 G/DL (3.4-5.0); Bilirubin,Total 2.1 MG/DL (0.2-1.0); Osmolality,Calculated 272.8 MOS/KG (273-304); Potassium 3.5 MMOL/L (3.5-5.1); Total Protein 7.2 G/DL (6.4-8.3)
[2017-12-28 06:05] LABS: Risk Ratio 4.27
[2017-12-28] MEDS ORDERED: TRANEXAMIC ACID 1,000 MG/10 ML VIAL PO PRN (07:25)
[2017-12-28] MEDS: PANTOPRAZOLE 40 MG VIAL IV SCH (07:42)
[2017-12-28] MEDS: INSULIN LISPRO 100 UNIT/ML SUBCUT SCH ×4 (08:22→20:48)
[2017-12-28 09:33] LABS: Hematocrit 23.9 VOL% (35.7-47.0); Hemoglobin 7.6 GM/DL (12.0-16.0)
[2017-12-28 15:48] LABS: Hematocrit 27.5 VOL% (35.7-47.0); Hemoglobin 8.7 GM/DL (12.0-16.0)
[2017-12-28 20:33] LABS: Hematocrit 30.6 VOL% (35.7-47.0); Hemoglobin 9.8 GM/DL (12.0-16.0)
[2017-12-29] MEDS: cefTRIAXone 1,000 MG in SYRINGE 1 EACH IV SCH (03:33)
[2017-12-29 04:29] LABS: Basophils # 0.1 10*3/uL (0.0-0.2); Basophils % 0.9 % (0.0-0.8); Eosinophils # 0.3 10*3/uL (0.0-0.87); Eosinophils % 2.9 % (0.00-10.9); Hematocrit 29.5 VOL% (35.7-47.0); Hemoglobin 9.2 GM/DL (12.0-16.0); Immature Granulocytes Absolute 0.09 #; Mean Corpuscular HGB Conc 31.2 GM/DL (32-36); Mean Corpuscular Hemoglobin 27 PG (27-34); Mean Corpuscular Volume 85.3 FL (87-102); Mean Platelet Volume 10.4 FL (9.6-12.0); Monocytes # 0.5 10*3/uL (0.11-0.8); NRBC # 0.03 10*3/uL; Neutrophils # 6.7 10*3/uL (1.4-7.4); Neutrophils % 78.2 % (38.7-73.9); Platelet Count 300 T/CUMM (130-400); Red Blood Count 3.46 MC/CUMM (3.8-5.5); Red Cell Distribution Width 19.8 % (9.3-17.3); White Blood Count 8.6 T/CUMM (4-12)
[2017-12-29 08:16] VITALS: BP 122/63
[2017-12-29] MEDS: INSULIN LISPRO 100 UNIT/ML SUBCUT SCH ×2 (08:26→12:42)
[2017-12-29] MEDS ORDERED: PANTOPRAZOLE 40 MG TABLET PO SCH (09:00)
== END 2017-12-29 16:25 | disposition home or self-care (01) | DRG 760 ==
LOC: EDUNIT# → EDBD → N.ED 04:11 → SUATTDRO 07:48 → N.EDINP 07:48 → N.ICU 08:26 → N.4E 12-28 14:45
PROVIDERS: ADMIT Internal Medicine; ATTEND Internal Medicine